=== PATIENT | female | born 1970 | race Caucasian/White ===

== ENCOUNTER → 2023-01-22 16:46 | Outpatient (BNVA) | payer MEDICAID, SELFPAY | PROVIDERS: PCP Nurse Practitioner Family; Visit Provider Nurse Practitioner Family | DX: I10 Essential (primary) hypertension (principal); Z76.89 Persons encountering health services in other specified circumstances; E78.5 Hyperlipidemia, unspecified; E11.9 Type 2 diabetes mellitus without complications; J45.909 Unspecified asthma, uncomplicated; M54.2 Cervicalgia; G89.29 Other chronic pain | CPT/HCPCS: 80053; 80061; 85025 ==

== ENCOUNTER 2023-04-22 10:37 | Outpatient (CLI) | payer OTHER, MEDICAID, SELFPAY ==
--- NOTE | 2023-04-22 11:00 | MM_ITS ---
WS: [id number] Bilateral screening 3D tomosynthesis digital mammogram, 04/22/2023 Clinical Data: Z12.31 - Encounter for screening mammogram for malignant ... Comparison: 09/12/2020, 08/19/2019, 07/27/2019, 11/02/2015. Findings: The breast parenchymal pattern shows fibroglandular tissue. No spiculated masses or clustered calcifi cations are seen. There are no secondary signs of carcinoma. Impression: 1. Negative bilateral mammogram unchanged. 2. Recommend annual screening mammograms. MM/[place] [id number] BIRADS: 1-Negative FOLLOW UP: 1 Year Follow-up The CAD cashier or checker stock clerk was used.
== END 2023-04-22 10:38 | disposition home or self-care (01) ==
LOC: MOBLMAM 10:58
PROVIDERS: PCP Nurse Practitioner Family; Visit Provider Nurse Practitioner Family
DX: Z12.31 Encounter for screening mammogram for malignant neoplasm of breast (principal)
CPT/HCPCS: 77063; 77067

== ENCOUNTER → 2023-07-07 15:30 | Outpatient (BNVA) | payer OTHER, MEDICAID, SELFPAY | PROVIDERS: PCP Nurse Practitioner Family; Visit Provider Orthopaedic Surgery | DX: G89.29 Other chronic pain; M47.22 Other spondylosis with radiculopathy, cervical region; Z98.1 Arthrodesis status | CPT/HCPCS: 72050 ==

== ENCOUNTER → 2023-11-04 11:04 | Outpatient (BNVA) | payer OTHER, MEDICAID, SELFPAY | PROVIDERS: PCP Nurse Practitioner Family; Visit Provider Internal Medicine | DX: E11.9 Type 2 diabetes mellitus without complications (principal); E78.5 Hyperlipidemia, unspecified | CPT/HCPCS: 36415; 80053; 80061; 82044; 83036 ==

== ENCOUNTER 2023-12-04 06:00 | Outpatient (RCR) | payer OTHER, MEDICAID, SELFPAY | END 2023-12-13 23:59 | disposition home or self-care (01) | LOC: GPT 06:00 | PROVIDERS: Visit Provider Orthopaedic Surgery | DX: M54.2 Cervicalgia (principal); M54.12 Radiculopathy, cervical region | CPT/HCPCS: 97110; 97161 ==

== ENCOUNTER → 2024-02-01 09:45 | Outpatient (BNVA) | payer MEDICAID, SELFPAY | PROVIDERS: PCP Nurse Practitioner Occupational Health; Visit Provider Nurse Practitioner | DX: M25.552 Pain in left hip (principal); M25.551 Pain in right hip | CPT/HCPCS: 73523 ==

== ENCOUNTER → 2024-02-08 09:09 | Outpatient (BNVA) | payer MEDICAID, SELFPAY | PROVIDERS: PCP Nurse Practitioner Occupational Health; Visit Provider Internal Medicine | DX: E11.9 Type 2 diabetes mellitus without complications (principal); E78.5 Hyperlipidemia, unspecified | CPT/HCPCS: 80053; 80061; 82043; 83036 ==

== ENCOUNTER 2025-02-25 20:02 | Emergency (ER) | payer MEDICAID, SELFPAY ==
--- OUTSIDE RECORDS SUMMARY | 2025-02-17 08:15 | XMS_ITS | Encounter Summary ---
Author Organization [facility] Address [address] [place] [address] Care Team Providers Care Roving Hand Name Role Phone Gamaliel Lund DO Primary Care Provider [phone] Reason for Referral * Radiology Services (Routine) - Closed Specialty Diagnoses / Procedures Referred By Fermin kraus Referred To Contact Diagnoses NAFLD (nonalcoholic fatty liver disease) Procedures US ABDOMEN COMPLETE Gamaliel Lund DO [address] [place] [address] Phone: tel: fax: [employer] Pre[employer]Registration [place] CALL TO MAKE APPOINTMENT ONLY [address] [place] [address] Phone: tel: fax: Referral ID Status Reason Start Date Expiration Date Visits Re quested Visits Authorized [id number] Closed 2025 03/03/2026 1 1 Reason for Visit * Radiology Services (Routine) - Closed Specialty Diagnoses / Procedures Referred By Contkody kraus Referred To Contact Diagnoses NAFLD (nonalcoholic fatty liver disease) Procedures US ABDOMEN COMPLETE Gamaliel Lund DO [address] [place] [address] Phone: tel: fax: [employer] Pre[facility]Registration [place] CALL TO MAKE APPOINTMENT ONLY [address] [place] [address] Phone: tel: fax: Referral ID Status Reason Start Date Expiration Date Visits Re quested Visits Authorized [id number] Closed 2025 03/03/2026 1 1 Encounter Details Date Type Department Care Team (Latest Contact Info) Description 02/17/2025 8:15 AM CDT - 02/17/2025 11:59 PM CDT Hospital Encounter [facility] [id number] [place] [phone] Gamaliel Lund DO [address] [place] [phone] Discharge Disposition: Home or Self Care Social History Tobacco Use Types Packs/Day Years Used Date Smoking Tobacco: Never Passive Smoke Exposure: Never Smokeless Tobacco: Never Alcohol Use Standard Drinks/Week Comments No 0 (1 standard drink = 0.6 oz pur e alcohol) Feeling Safe Answer Date Recorded Are you in a relationship wi th someone who hurts you emotionally and/or physically? No 11/25/2024 Comments No Sex and Gender Information Value Date Recorded Sex Assigned at Not on file Legal Sex Female 2:50 AM MEDICAL OFFICE RECEPTIONIST Gender Identity Not on file Sexual Orientation Not on file documented as of this encounter Medications at Time of Discharge HYDROcodone-acetami nophen (NORCO) 10-325 mg TabletIndications:P rimary osteoarthritis of left knee,S/P left knee arthroscopy,Chronic post-operative pain Take 1 Tablet by mouth every 6 hours as needed for Pain, Moderate. Max Daily Amount: 4 Tablets 112 Tablet 5 pregabalin (LYRICA) 75 mg CapsuleIndications: Pain in joint of left shoulder,Right carpal tunnel syndrome,Right median nerve neuropathy TAKE ONE CAPSULE BY MOUTH THREE TIMES A DAY 90 Capsule 3 5 tiZANidine (ZANAFLEX) 4 mg TabletIndications:P ain in joint of left shoulder,Right carpal tunnel syndrome,Right median nerve neuropathy TAKE ONE TABLET BY MOUTH EVERY 8 HOURS NEEDED FOR MUSCLE SPASM 45 Tablet 2 5 buPROPion HCL (WELLBUTRIN XL) 150 mg Extended Release 24 hour tablet TAKE ONE TABLET BY MOUTH DAILY 100 Tablet 5 Arthritis Pain, diclofenac, 1 % gel APPLY 2 GRAMS TOPICALLY FOUR TIMES A DAY TO SINGLE ELBOW, WRIST OR HAND (INCLUDING PALM/FINGERS/BACK OF HAND) 100 Gram 5 5 ondansetron (ZOFRAN ODT) 4 mg Tablet, Rapid DissolveIndications :Nausea DISSOLVE 1 TABLET BY MOUTH AND SWALLOW WITH SALIVA EVERY 8 HOURS NEEDED FOR NAUSEA AND VOMITING 30 Tablet 2 5 fluticasone furoate (Arnuity Ellipta) 100 mcg/actuation inhalerIndications: Mild persistent asthma without complication INHALE 1 PUFFS BY MOUTH EVERY DAY AT THE SAME TIME EACH DAY 30 Each 2 5 OTHERIndications:Pr imary osteoarthritis of left knee Lift chair motor for use with chair to assist with sit to stand motion due to severe knee arthritis. DX M17.12 1 Each 5 lisinopriL (PRINIVIL) 40 mg tablet 5 tirzepatide, weight loss, (Zepbound) 15 mg/0.5 mL Pen InjectorIndications :Morbid obesity with body mass index of 40.0-49.9 ([facility]),Type 2 diabetes mellitus with hyperglycemia, with long-term current use of insulin ([facility]) Inject 0.5 mL (15 mg) by subcutaneous injection every 7 days. 2 mL 11 5 insulin degludec (Tresiba FlexTouch U-200) 200 unit/mL pen syringeIndications: Type 2 diabetes mellitus without complication, with long-term current use of insulin ([facility]) Inject 54 Units by subcutaneous injection daily with breakfast. Max 50 units daily. 21 mL 3 5 insulin lispro (HumaLOG KwikPen Insulin) 100 unit/mL pen syringeIndications: Type 2 diabetes mellitus without complication, with long-term current use of insulin ([facility]) Inject 8 Units by subcutaneous injection 3 times daily with meals. Max 50 units daily. 15 mL 3 5 Insulin Gum Spring, Disposable, (Pentips Pen Needle) 32 gauge x 5/32 NeedleIndications:T ype 2 diabetes mellitus with hyperglycemia, with long-term current use of insulin ([facility]) USE FOUR TIMES A DAY TO INJECT INSULIN 400 Each 12 5 atorvastatin (LIPITOR) 40 mg tabletIndications:T ype 2 diabetes mellitus without complication, with long-term current use of insulin ([facility]),Mixed hyperlipidemia Take 1 Tablet (40 mg) by mouth daily. 100 Tablet 3 5 metFORMIN (GLUCOPHAGE XR) 500 mg Extended Release 24 hour tabletIndications:T ype 2 diabetes mellitus with hyperglycemia, without long-term current use of insulin ([facility]) TAKE TWO TABLETS BY MOUTH TWO TIMES A DAY 360 Tablet 3 4 Dexcom G7 Band Cutting Machine Operator 4 FLUoxetine (PROzac) 10 mg capsule 4 shower chair DME EQUIPMENTIndication s:Morbid obesity with body mass index of 40.0-49.9 ([facility]),Primary osteoarthritis of left knee,Complication of internal left knee prosthesis, unspecified complication, sequela For use with showering. 1 Each 4 risperiDONE (RisperDAL) 1 mg tablet take one tablet by mouth two times a day 60 Tablet 1 4 Blood-Glucose Sensor (Dexcom G7 Sensor) DeviceIndications:T ype 2 diabetes mellitus without complication, with long-term current use of insulin ([facility]) Use to monitor glucose continuously. Apply new sensor every 10 days. 3 Each 11 4 albuterol sulfate 90 mcg/Actuation inhaler Inhale two (2) puffs every four (4) hours as needed for wheezing. 8.5 Gram 5 1 documented as of this encounter Plan of Treatment Upcoming Encounters Date Type Department Care Team (Late st Contact Info) Description 03/29/2025 2:00 PM CDT Office Visit [facility] Pain Management [address] [place] [address] Dorie Kat PA [address] [place] [phone] 04/20/2025 8:45 AM MEDICAL OFFICE RECEPTIONIST Office Visit [facility] Orthopedics - Orthopedic [facility] [address] [place] [phone] Aaliyah Ordonez MD [address] [place] [phone] 05/30/2025 1:00 PM MEDICAL OFFICE RECEPTIONIST Appointment [facility] [address] [facility] [address] [place] [phone] Gamaliel Lund, DO [address] [place] [phone] 06/19/2025 9:00 AM MEDICAL OFFICE RECEPTIONIST Office Visit [facility] Barber Opt[facility] [address] [place] [address] Nicolas Mejia, OD [address] [place] [address] 08/30/2025 3:20 PM CDT Office Visit [facility] [address] [phone] Gamaliel Lund, DO [address] [place] [phone] documented as of this encounter Procedures Procedure Name Priority Date/Time Associated Diagnosis Comments US ABDOMEN COMPLETE Routine 02/17/2025 9 :36 AM CDT NAFLD (nonalcoholic fatty liver disease) documented in this encounter Results * US ABDOMEN COMPLETE (02/17/2025 9:36 AM CDT) Anatomical Region Laterality Modality Abdomen Ultrasound 02/17/2025 9:36 AM CDT Impressions 02/19/2025 5:51 PM CDT IMPRESSION: Please see below. US ABDOMEN COMPLETE, 02/17/2025 9:36 AM. REASON FOR EXAM: See Diagnosis. DIAGNOSIS: NAFLD (nonalcoholic fatty liver disease). COMPARISON: None. TECHNIQUE: Multiplanar real-time ultrasonography of the abdomen using reed-scale imaging, supplemented by color and spectral Doppler as needed. FINDINGS: * Liver: Hepatic parenchymal echogenicity is diffusely increased or decreased through transmission and echotexture is somewhat coarsened. There is mild nodular contour liver. No discrete hepatic lesion is identified. The portal vein is patent with antegrade flow. * Gallbladder: Surgically absent. * Biliary: No intra- or extra-hepatic ductal dilatation. Common bile duct measures 6.2 mm. * Spleen: Normal size, contour, and echo texture without focal lesions. Maximal dimension = 10.0 cm. * Pancreas: Obscured by bowel gas. * Kidneys: No perinephric fluid, or hydronephrosis. No focal masses are identified. Right kidney measures 9.9 cm. Left kidney measures 11.1 cm. * Peritoneum: No ascites. * Imaged Aorta/IVC: The visualized aorta and IVC are within normal limits. ++++++++++++++++++++ IMPRESSION: Findings suggestive of underlying hepatic steatosis with possible chronic liver disease such as Miller cirrhosis.. Narrative Procedure Note Nicolas Wu MD - 02/19/2025 IMPRESSION: Please see below. US ABDOMEN COMPLETE, 02/17/2025 9:36 AM. REASON FOR EXAM: See Diagnosis. DIAGNOSIS: NAFLD (nonalcoholic fatty liver disease). COMPARISON: None. TECHNIQUE: Multiplanar real-time ultrasonography of the abdomen using reed-scale imaging, supplemented by color and spectral Doppler as needed. FINDINGS: * Liver: Hepatic parenchymal echogenicity is diffusely increased or decreased through transmission and echotexture is somewhat coarsened. There is mild nodular contour liver. No discrete hepatic lesion is identified. The portal vein is patent with antegrade flow. * Gallbladder: Surgically absent. * Biliary: No intra- or extra-hepatic ductal dilatation. Common bile duct measures 6.2 mm. * Spleen: Normal size, contour, and echo texture without focal lesions. Maximal dimension = 10.0 cm. * Pancreas: Obscured by bowel gas. * Kidneys: No perinephric fluid, or hydronephrosis. No focal masses are identified. Right kidney measures 9.9 cm. Left kidney measures 11.1 cm. * Peritoneum: No ascites. * Imaged Aorta/IVC: The visualized aorta and IVC are within normal limits. ++++++++++++++++++++ IMPRESSION: Findings suggestive of underlying hepatic steatosis with possible chronic liver disease such as Miller cirrhosis.. Gamaliel Lund DO ORDERABLES Final Result documented in this encounter Visit Diagnoses Diagnosis NAFLD (nonalcoholic fatty liver disease) Other chronic nonalcoholic liver disease documented in this encounter Additional Health Concerns Assessment Noted Time PHQ-9 Depression Total Score: 2 11/11/19 25 11:00 AM CDT documented as of this encounter Care Teams Roving Hand Relationship Specialty Start Date End Date Gamaliel Lund DO [facility] [address] [address] PCP - General Family Practice 01/04/24 documented as of this encounter
--- OUTSIDE RECORDS SUMMARY | 2025-02-20 11:26 | XMS_ITS | Encounter Summary ---
Author Organization [facility] Address [address] [place] [address] Care Team Providers Care Jailor Name Role Phone Gamaliel Lund DO Primary Care Provider [phone] Reason for Referral * MRI (Routine) - Closed Specialty Diagnoses / Procedures Referred By Contac t Referred To Contact Diagnoses Lumbar radiculopathy Procedures MRI LUMBAR WO CONTRAST Ernie Goode PA [address] [place] [address] [place] [address] Phone: tel: fax: [employer] Pre-Registration [place] CALL TO MAKE APPOINTMENT ONLY [address] [place] [address] Phone: tel: fax: Referral ID Status Reason Start Date Expiration Date Visits Re quested Visits Authorized [id number] Closed 02/14/2025 06/14/2025 1 1 Reason for Visit * MRI (Routine) - Closed Specialty Diagnoses / Procedures Referred By Contac t Referred To Contact Diagnoses Lumbar radiculopathy Procedures MRI LUMBAR WO CONTRAST Ernie Goode PA [address] [place] [address] [place] [address] Phone: tel: fax: [employer] Pre-Registration [place] CALL TO MAKE APPOINTMENT ONLY [address] [place] [address] Phone: tel: fax: Referral ID Status Reason Start Date Expiration Date Visits Re quested Visits Authorized [id number] Closed 02/14/2025 06/14/2025 1 1 Encounter Details Date Type Department Care Team (Latest Contact Info) Description 02/20/2025 11:26 AM CDT - 02/20/2025 11:59 PM CDT Hospital Encounter [facility] [place] [facility] [address] [place] [address] [address] [phone] Ernie Goode PA [address] [place] [address] J[place]on [id number] Discharge Disposition: Home or Self Care Social [...] on file Legal Sex Female 2:50 AM DIAGNOSTICS SALES DEVELOPER Gender Identity Not on file Sexual Orientation [...] obesity with body mass index of 40.0-49.9 ([facility]),Type 2 diabetes mellitus with hyperglycemia, with long-term current use of insulin ([facility]) Inject 0.5 mL (15 mg) by subcutaneous injection every 7 days. 2 mL 11 5 insulin degludec (Tresiba FlexTouch U-200) 200 unit/mL pen syringeIndications: Type 2 diabetes mellitus without complication, with long-term current use of insulin ([facility]) Inject 54 Units by subcutaneous injection daily with breakfast. Max 50 units daily. 21 mL 3 5 insulin lispro (HumaLOG KwikPen Insulin) 100 unit/mL pen syringeIndications: Type 2 diabetes mellitus without complication, with long-term current use of insulin ([facility]) Inject 8 Units by subcutaneous injection 3 times daily with meals. Max 50 units daily. 15 mL 3 5 Insulin Leckrone, Disposable, (Pentips Pen Needle) 32 gauge x 5/32 NeedleIndications:T ype 2 diabetes mellitus with hyperglycemia, with long-term current use of insulin ([facility]) USE FOUR TIMES A DAY TO INJECT INSULIN 400 Each 12 5 atorvastatin (LIPITOR) 40 mg tabletIndications:T ype 2 diabetes mellitus without complication, with long-term current use of insulin ([facility]),Mixed hyperlipidemia Take 1 Tablet (40 mg) by mouth daily. 100 Tablet 3 5 metFORMIN (GLUCOPHAGE XR) 500 mg Extended Release 24 hour tabletIndications:T ype 2 diabetes mellitus with hyperglycemia, without long-term current use of insulin ([facility]) TAKE TWO TABLETS BY MOUTH TWO TIMES A DAY 360 Tablet 3 4 Dexcom G7 Sap Bw Consultant 4 FLUoxetine (PROzac) 10 mg capsule 4 shower chair DME EQUIPMENTIndication s:Morbid obesity with body mass index of 40.0-49.9 ([facility]),Primary osteoarthritis of left knee,Complication of internal left knee prosthesis, unspecified complication, sequela For use with showering. 1 Each 4 risperiDONE (RisperDAL) 1 mg tablet take one tablet by mouth two times a day 60 Tablet 1 4 Blood-Glucose Sensor (Dexcom G7 Sensor) DeviceIndications:T ype 2 diabetes mellitus without complication, with long-term current use of insulin ([facility]) Use to monitor glucose continuously. Apply new sensor every 10 days. 3 Each 11 4 albuterol sulfate 90 mcg/Actuation inhaler Inhale two (2) puffs every four (4) hours as needed for wheezing. 8.5 Gram 5 1 documented as of this encounter Plan of Treatment Upcoming Encounters Date Type Department Care Team (Late st Contact Info) Description 03/29/2025 2:00 PM CDT Office Visit [facility] Pain Management [address] [place] [address] Dorie Kat PA [address] [place] [address] 04/20/2025 8:45 AM DIAGNOSTICS SALES DEVELOPER Office Visit [facility] [address] [place] [address] Aaliyah Ordonez MD [address] [place] [phone] 05/30/2025 1:00 PM DIAGNOSTICS SALES DEVELOPER Appointment [facility] [address] [place] [phone] Gamaliel Lund, DO [address] [place] [phone] 06/19/2025 9:00 AM DIAGNOSTICS SALES DEVELOPER Office Visit [facility] Faceter Optometry [facility] [address] [place] [address] Nicolas Mejia, OD [address] [place] [address] 08/30/2025 3:20 PM CDT Office Visit [facility] [place] [address] [address] Gamaliel Lund, DO [address] [place] [phone] documented as of this encounter Procedures Procedure Name Priority Date/Time Associated Diagnosis Comments MRI LUMBAR WO CONTRAST Routine 02/20/2025 12:00 PM CDT Lumbar radiculopathy documented in this encounter Results * MRI LUMBAR WO CONTRAST (02/20/2025 12:00 PM CDT) Anatomical Region Laterality Modality Spine Magnetic Resonan ce 02/20/2025 12:0 0 PM CDT Impressions 02/20/2025 1:24 PM CDT IMPRESSION: Lower lumbar degenerative change with severe bilateral L5-S1 neural foraminal narrowing. Narrative 02/20/2025 1:24 PM CDT Exam: MRI LUMBAR WO CONTRAST Date/Time of Exam: 02/20/2025 12:00 PM Reason For Exam: Lumbar radiculopathy, symptoms persist with > 6 wks treatment. Diagnosis: Lumbar radiculopathy. Technique: MRI of the lumbar spine was performed without the administration of intravenous contrast. Findings: Mild retrolisthesis of L5 on S1. No acute fracture or aggressive osseous lesion. Conus medullaris terminates at L1.. The paraspinal musculature demonstrates mild atrophy. The retroperitoneal structures demonstrate no acute abnormality. L1-2: Symmetric disc bulge and facet arthropathy. Mild left neural foraminal narrowing. L2-3: Patent spinal canal and neural foramen. L3-4: Bilateral facet arthropathy with facet arthropathy. Mild right neural foraminal narrowing. L4-5: Bilateral facet arthropathy with mild left neural foraminal narrowing. L5-S1: Symmetric disc bulge and facet arthropathy. Severe bilateral neural foraminal narrowing. Procedure Note Elliot Crook, DO - 02/20/2025 Exam: MRI LUMBAR WO CONTRAST Date/Time of Exam: 02/20/2025 12:00 PM Reason For Exam: Lumbar radiculopathy, symptoms persist with > 6 wks treatment. Diagnosis: Lumbar radiculopathy. Technique: MRI of the lumbar spine was performed without the administration of intravenous contrast. Findings: Mild retrolisthesis of L5 on S1. No acute fracture or aggressive osseous lesion. Conus medullaris terminates at L1.. The paraspinal musculature demonstrates mild atrophy. The retroperitoneal structures demonstrate no acute abnormality. L1-2: Symmetric disc bulge and facet arthropathy. Mild left neural foraminal narrowing. L2-3: Patent spinal canal and neural foramen. L3-4: Bilateral facet arthropathy with facet arthropathy. Mild right neural foraminal narrowing. L4-5: Bilateral facet arthropathy with mild left neural foraminal narrowing. L5-S1: Symmetric disc bulge and facet arthropathy. Severe bilateral neural foraminal narrowing. IMPRESSION: Lower lumbar degenerative change with severe bilateral L5-S1 neural foraminal narrowing. Ernie SANTOS MR ORDERABLES Final Result documented in this encounter Visit Diagnoses Diagnosis Lumbar radiculopathy Thoracic or lumbosacral neuritis or radiculitis, unspecified documented in this encounter Additional Health Concerns Assessment Noted Time PHQ-9 Depression Total Score: 2 05/29/20 25 11:00 AM CDT documented as of this encounter Care Teams Jailor Relationship Specialty Start Date End Date Gamaliel Lund DO [address] [facility] [address] [place] [address] PCP - General Family Practice 01/04/24 documented as of this encounter
--- OUTSIDE RECORDS SUMMARY | 2025-02-23 15:20 | XMS_ITS | Encounter Summary ---
Author Organization [facility] Address [address] [place] [address] Care Team Providers Care Hull Molder Name Role Phone Gamaliel Lund DO Primary Care Provider [phone] Reason for Referral * Radiology Services (Routine) - Authorized Specialty Diagnoses / Procedures Referred By Contac t Referred To Contact Diagnoses Screening mammogram, encounter for Procedures MAMMO 3D PAVAN SCREEN BILAT W OR WO CAD CHG SCREENING MAMMOGRAPHY BI 2-VIEW BREAST INC CAD CHG SCREENING DIGITAL BREAST TOMOSYNTHESIS BI Gamaliel Lund DO [address] [place] [phone] Phone: tel: fax: [facility] Pre-Registration [place] CALL TO MAKE APPOINTMENT ONLY [address] [place] [address] Phone: tel: fax: Referral ID Status Reason Start Date Expiration Date V isits Requested Visits Authorized [id number] Authorized 02/23/2025 03/26/2026 1 1 Reason for Visit * Reason Comments Diabetes Encounter Details Date Type Department Care Team (Latest Contact Info) Description 02/23/2025 3:20 PM CDT Office Visit [facility] [address] [place] [phone] Gamaliel Lund DO [address] [place] [phone] Diabetic polyneuropathy associated with type 2 diabetes mellitus (CMS/HCC) (Primary Dx); Encounter for long-term (current) use of medications; Morbid obesity with body mass index of 40.0-49.9 (CMS/HCC); Type 2 diabetes mellitus with hyperglycemia, with long-term current use of insulin ([facility]); Essential hypertension; Hyperlipemia, mixed; Mild persistent asthma without complication; Primary osteoarthritis of left knee; Complication of internal left knee prosthesis, unspecified complication, sequela; Patellar tracking disorder of left knee; Hx of fusion of cervical spine, s/p C6-C7 ACDF SX 08/10/14; Screening mammogram, encounter for Social History Tobacco Use Types Packs/Day Years [...] on file Legal Sex Female 2:50 AM APPLICATIONS PROCESSOR Gender Identity Not on file Sexual Orientation Not on file documented as of this encounter Last Filed Vital Signs Vital Sign Reading Time Taken Comments Blood Pressure 114/78 02/23/2025 2:56 PM CDT Pulse 86 02/23/2025 2:56 PM CDT Temperature 36.5 C (97.7 F) 02/23/2025 2:56 PM CDT Respiratory Rate 18 02/23/2025 2:56 PM CDT Oxygen Saturation 98% 02/23/2025 2:56 PM CDT Inhaled Oxygen Concentration - - Weight 105.1 kg (231 lb 12.8 oz) 02/23/2025 2:56 PM CDT Height 160 cm (5' 3 ) 02/23/2025 2:56 PM CDT Body Mass Index 41.06 02/23/2025 2:56 PM CDT documented in this encounter Patient Instructions * Attachments The following attachments cannot be sent through Care Everywhere. * Recombinant Zoster Vaccine: VIS (Latvian) documented in this encounter Progress Notes * Gamaliel Lund DO - 02/23/2025 2:58 PM CDT Chief Complaint Patient presents with Diabetes SUBJECTIVE: Answers submitted by the patient for this visit: Diabetes Questionnaire (Submitted on 02/16/2025) Chief Complaint: Diabetes problem anxiety: Yes blurred vision: Yes chest pain: Yes fatigue: Yes foot paresthesias: Yes foot ulcerations: No polydipsia: Yes polyphagia: No polyuria: Yes neck pain: Yes orthopnea: No palpitations: No peripheral edema: Yes PND: No visual change: Yes weakness: Yes weight loss: No shortness of breath: No confusion: No speech difficulty: No dizziness: Yes nervous/anxious: Yes headaches: No hunger: No mood changes: No pallor: No seizures: No tremors: Yes sleepiness: No sweats: No Home blood tests: 3-4 x per day breakfast glucose levels: 180-200 lunch glucose levels: 180-200 dinner glucose level: >200 Bedtime range: >200 Eye exam current: Yes History of Present Illness The patient is a 55-year-old female with diabetes, knee osteoarthritis, status post knee replacement, and patellar tendon tracking disorder, presenting for follow-up. Knee Pain and Mobility Issues - Pain medication is effective, but she has difficulty walking after standing. - She recalls an incident 3-4 days ago when she woke up in pain and couldn't walk for the day. - During such episodes, she remains seated and requires assistance to stand initially but can move independently thereafter. Diabetes Management - Blood sugar levels are well-controlled, not exceeding 200 until late in the day. - She is on Tresiba, Humalog, metformin, and Zepbound, resulting in a 20-pound weight loss. - Previously tried Invokana and glimepiride. Nonalcoholic Fatty Liver Disease - Ultrasound revealed nonalcoholic fatty liver disease with cirrhosis. Other Health Maintenance - Mammogram in 05/2024. - Last colonoscopy in 2021. - Tetanus booster in 2019. - Chickenpox at 9 months. MRI Results - MRI of her back; seeking explanation of results. - Follow-up with Dr. Hagan in 04/2025. Diet - Diabetic diet, reducing carbohydrates, avoiding processed sugars. PAST SURGICAL HISTORY - Knee replacement - Surgery related to colonoscopy in 2021 Wt Readings from Last 5 Encounters: 02/23/25 105.1 kg (231 lb 12.8 oz) 12/08/24 112.5 kg (248 lb) 11/25/24 112.9 kg (249 lb) 11/10/24 113 kg (249 lb 3.2 oz) 11/08/24 112.5 kg (248 lb 1.6 oz) Ht Readings from Last 1 Encounters: 02/23/25 5' 3 (1.6 m) BMI Readings from Last 5 Encounters: 02/23/25 41.06 kg/m?? 01/18/25 43.93 kg/m?? 12/08/24 43.93 kg/m?? 11/25/24 44.11 kg/m?? 11/10/24 44.14 kg/m?? Current Outpatient Medications on File Prior to Visit Medication Sig Dispense Refill HYDROcodone-acetaminophen (NORCO) 10-325 mg Tablet Take 1 Tablet by mouth every 6 hours as needed for Pain, Moderate. Max Daily Amount: 4 Tablets 112 Tablet 0 pregabalin (LYRICA) 75 mg Capsule TAKE ONE CAPSULE BY MOUTH THREE TIMES A DAY 90 Capsule 3 tiZANidine (ZANAFLEX) 4 mg Tablet TAKE ONE TABLET BY MOUTH EVERY 8 HOURS NEEDED FOR MUSCLE SPASM45 Tablet 2 buPROPion HCL (WELLBUTRIN XL) 150 mg Extended Release 24 hour tablet TAKE ONE TABLET BY MOUTH [id number] Tablet 0 Arthritis Pain, diclofenac, 1 % gel APPLY 2 GRAMS TOPICALLY FOUR TIMES A DAY TO SINGLE ELBOW, WRISTOR HAND (INCLUDING PALM/FINGERS/BACK OF HAND) 100 Gram 5 ondansetron (ZOFRAN ODT) 4 mg Tablet, Rapid Dissolve DISSOLVE 1 TABLET BY MOUTH AND SWALLOW WITH SALIVA EVERY 8 HOURS NEEDED FOR NAUSEA AND VOMITING 30 Tablet 2 fluticasone furoate (Arnuity Ellipta) 100 mcg/actuation inhaler INHALE 1 PUFFS BY MOUTH EVERY DAY AT THE SAME TIME EACH DAY 30 Each 2 OTHER Lift chair motor for use with chair to assist with sit to stand motion due to severe knee arthritis. DX M17.12 1 Each 0 lisinopriL (PRINIVIL) 40 mg tablet tirzepatide, weight loss, (Zepbound) 15 mg/0.5 mL Pen Injector Inject 0.5 mL (15 mg) by subcutaneous injection every 7 days. 2 mL 11 insulin degludec (Tresiba FlexTouch U-200) 200 unit/mL pen syringe Inject 54 Units by subcutaneous injection daily with breakfast. Max 50 units daily. 21 mL 3 insulin lispro (HumaLOG KwikPen Insulin) 100 unit/mL pen syringe Inject 8 Units by subcutaneous injection 3 times daily with meals. Max 50 units daily. 15 mL 3 Insulin Guffey, Disposable, (Pentips Pen Needle) 32 gauge x 5/32 Needle USE FOUR TIMES A DAY TO INJECT INSULIN 400 Each 12 atorvastatin (LIPITOR) 40 mg tablet Take 1 Tablet (40 mg) by mouth daily. 100 Tablet 3 metFORMIN (GLUCOPHAGE XR) 500 mg Extended Release 24 hour tablet TAKE TWO TABLETS BY MOUTH TWO TIMES A DAY 360 Tablet 3 FLUoxetine (PROzac) 10 mg capsule shower chair DME EQUIPMENT For use with showering. 1 Each 0 risperiDONE (RisperDAL) 1 mg tablet take one tablet by mouth two times a day 60 Tablet 1 albuterol sulfate 90 mcg/Actuation inhaler Inhale two (2) puffs every four (4) hours as needed for wheezing. 8.5 Gram 5 Dexcom G7 Academic Advisement Director (Patient not taking: Reported on 02/23/2025) Blood-Glucose Sensor (Dexcom G7 Sensor) Device Use to monitor glucose continuously. Apply new sensor every 10 days. (Patient not taking: Reported on 02/23/2025) 3 Each 11 No current facility-administered medications on file prior to visit. PAST MEDICAL/SURGICAL HISTORY: Past Medical History: Diagnosis Date Asthma Depression Gall stones History of abnormal cervical Pap smear 1997 tric HTN (hypertension) Hyperlipidemia Hypertension 2010 Infertility, female [id number] Inflammatory arthritis Injury of face and neck C6 - bone spur Joint pain Osteoporosis 2019 Patient denies medical problems Patient denies relevant medical history Type 2 diabetes mellitus with hyperglycemia, without long-term current use of insulin ([facility]) 05/31/2021 Past Surgical History: Procedure Laterality Date HX CERVICAL FUSION 08/10/2014 CERVICAL ARTHRODESIS performed by Austyn Banerjee MD at [facility] MAIN OR HX CHOLECYSTECTOMY HX DILATION AND CURETTAGE [id number] HX HAND SURGERY 2014 HX HEMORRHOIDECTOMY N/A 06/03/2021 HEMORRHOIDECTOMY performed by Ilan Guan MD at [facility] MAIN OR HX OVARIAN CYST REMOVAL bilateral HX SHOULDER ARTHROSCOPY W/ SUBACROMIAL DECOMPRESSION AND DISTAL CLAVICLE EXCISION 08/08/2013 [place] ARTHRD ANT INTERBODY MIN DSC CRV BELOW C2 Left 08/10/2014 CERVICAL DISCECTOMY FUSION ANTERIOR APPROACH performed by Austyn Banerjee MD at [facility] OR [place] ARTHRODESIS INTERPHALANGEAL JT W/WO INT FIXJ Right 11/25/2024 FINGER INTERPHALANGEAL JOINT FUSION DISTAL performed by Aaliyah Ordonez MD at [facility] OR [place] ARTHRS KNE SURG W/MENISCECTOMY MED/LAT W/SHVG Left 09/12/2015 KNEE MENISCECTOMY ARTHROSCOPIC performed by Aubrey Cali MD at [facility] OR [place] ARTHRS KNEE ABRASION ARTHRP/[address] VENDOR DRLG/MICROFX Left 09/12/2015 KNEE CHONDROPLASTY ARTHROSCOPIC performed by Aubrey Cali MD at [facility] OR [place] MURGUIA W/O FACETEC FORAMOT/DSC 1/2 VRT SGM CRV 08/10/2014 CERVICAL DECOMPRESSION performed by Austyn Banerjee MD at [facility] OR [place] NEUROPLASTY &/TRANSPOS MEDIAN NRV CARPAL TUNNE Right 03/27/2015 CARPAL TUNNEL RELEASE performed by Doron Lundy MD at [facility] OR PT DENIES RELEVANT SURGICAL HISTORY Social History Socioeconomic History Marital status: Tobacco Use Smoking status: Never Passive exposure: Never Smokeless tobacco: Never Vaping Use Vaping status: Never Used Substance and Sexual Activity Alcohol use: No Alcohol/week: 0.0 standard drinks of alcohol Drug use: Never Sexual activity: Yes Partners: Male control/protection: None Social Drivers of Health Food Insecurity: Not on File (06/09/2024) Received from [facility] Food Insecurity Food: 0 Transportation Needs: Not on File (06/09/2024) Received from [facility] Transportation Needs Transportation: 0 Feeling Safe: Not At Risk (11/25/2024) Feeling Safe Patient has indicated abuse: : No Housing Stability: Not on File (06/09/2024) Received from [facility] Housing Stability [place]in OBJECTIVE: PHYSICAL EXAM: BP 114/78 Pulse 86 Temp 97.7 ??F (36.5 ??C) (Temporal) Resp 18 Ht 5' 3 (1.6 m) Wt 105.1 kg (231 lb 12.8 oz) LMP 08/15/2024 (Approximate) SpO2 98% BMI 41.06 kg/m?? Physical Exam Procedures RESULTS: Results - Labs: - A1c: 7.8 (down from 9.6) - Liver enzymes: Slightly elevated - Imaging: - Ultrasound: Nonalcoholic fatty liver disease with cirrhosis - MRI lumbar: Degenerative change with severe bilateral L5-S1 neuroforaminal narrowing, disk bulge,facet arthropathy, and retrolisthesis ASSESSMENT/PLAN: ICD-10-CM ICD-9-CM 1. Diabetic polyneuropathy associated with type 2 diabetes mellitus ([facility]) E11.42 250.60 357.2 2. Encounter for long-term (current) use of medications Z79.899 V58.69 MEDICATION COMPLIANCE DRUG SCREEN 3. Morbid obesity with body mass index of 40.0-49.9 ([facility]) E66.01 278.01 4. Type 2 diabetes mellitus with hyperglycemia, with long-term current use of insulin [place] E11.65 250.00 Z79.4 790.29 V58.67 5. Essential hypertension I10 401.9 6. Hyperlipemia, mixed E78.2 272.2 7. Mild persistent asthma without complication J45.30 493.90 8. Primary osteoarthritis of left knee M17.12 715.16 9. Complication of internal left knee prosthesis, unspecified complication, sequela T84.9XXS 909.3 Z96.652 10. Patellar tracking disorder of left knee M22.8X2 719.46 11. Hx of fusion of cervical spine, s/p C6-C7 ACDF SX 08/10/14 Z98.1 V45.4 Assessment & Plan 1. Knee osteoarthritis: Chronic. - Significant difficulty in standing and walking due to knee pain, sometimes preventing walking fora day. - Considering a lift chair; insurance approval requires walking after standing. - Continue current pain medication, avoid overuse. 2. Diabetes mellitus: Stable. - Blood sugar levels well-controlled, no readings exceeding 200 until late in the day. A1c decreased from 9.6 to 7.8. - On Tresiba, Humalog, metformin, and Zepbound. If A1c remains above 7, consider reintroducing Invokana and glimepiride. - Continue diabetic diet, reduce carbohydrates, avoid processed sugars. Possible insulin dosage reduction with weight loss. 3. Nonalcoholic fatty liver disease with cirrhosis: Chronic. - Ultrasound revealed nonalcoholic fatty liver disease with cirrhosis. - Weight loss is primary treatment goal. Schedule follow-up ultrasound next year. - Continue current regimen, including Zepbound. Report any abdominal pain or persistent nausea. 4. Lower lumbar degenerative change: Severe. - MRI revealed lower lumbar degenerative changes with severe bilateral L5-S1 neuroforaminal narrowing, facet arthropathy, and retrolisthesis. - Recommend physical therapy if covered by insurance; otherwise, continue home exercises. Consider injections for pain management if necessary. - Take arthritis medications like ibuprofen or Aleve if kidneys are functioning appropriately. Use Lyrica for nerve-related pain, hydrocodone for residual pain. 5. Health maintenance. - Last mammogram in 05/2024, last colonoscopy in 2021, tetanus booster in 2019. - Ordered mammogram for 05/2025. Advise shingles vaccine at pharmacy. Administer tetanus booster ifanother cut or poke. Follow-up: Scheduled for 6 months. Lift chair assessment: Patient is able to ambulate once standing and does not use a wheelchair or power operated vehicle (POV). She has severe arthritis of her knee with history of complication of internal knee prosthesis and patellar tracking disorder of left knee (ICD 10: M17.12, T84.9XXS, Z96.652, M22.8X2). This is a part of her course of treatment and prescribed to affect improvement in her condition. Currently sheis incapable of standing up from any chair in her home. No chairs in her home have arms which wouldotherwise assist her to a standing position. Preventive Care Recommendations for AVERAGE Risk Adult Females 40 - 65 years old Measure USPSTF Recommendation Plan Breast cancer screening (mammogram) Every 1 to 2 years for women >40 ordered/scheduled Cervical cancer screening (pap test) Every 3-5 years for women 30-65 (depending on the exact test used.) already done/up to date Colon Cancer Screening Colonoscopy every 10 yrs or FIT yearly; ages 45-75 already done/up to date Lung Cancer Screening Annual low-dose CT, adults 50 - 80* w/ >20 pack-year smoking hx who currently smoke or have quit w/in 15 yrs (*Some insurances may not cover <55 yo, >77 yo or <30 pk yrs) N/A - does not meet screening criteria reports that she has never smoked. She has never been exposed to tobacco smoke. She has never used smokeless tobacco. Lipid Screening Identification of dyslipidemia and calculation of 10-year CVD event risk requires universal lipid screening in adults ages 40 - 75 already done/up to date Diabetic screening Adults 40-70 who are overweight or obese N/A - condition already diagnosed. HIV testing Adolescents and adults 15 - 65 patient declined Hepatitis C Screening Adults 18-79 patient declined Immunizations COVID-19 Influenza Pneumococcal (if >50 yo) Tdap/Td Zoster (Shingles) (if >50 yo) Due for Zoster referred to pharmacy TOBACCO/NICOTINE COUNSELING She is not a tobacco/nicotine user. Depression Screen Positive: PHQ-2 score >= 3 or PHQ-9 score >= 9 PHQ-2 Total: 1 (02/23/2025 2:00 PM) PHQ-9 Total: 6 (02/23/2025 2:00 PM) DEPRESSION PLAN OF CARE Her depression screen was positive. Her antidepressant medication was reviewed The author of this note, patient (or authorized leather goods sales representative), and all other persons present consent to the audio recording of this visit for charting documentation purposes. This note was automatically generated by a [email or web address] technology ([employer]), reviewed, edited, and finalized by Gamaliel Lund DO. Gamaliel Lund DO Portions of this note were created using [employer] Dictation software. Attempts were made to correct any mistakes prior to signing this note. There is always a possibility that words were not transcribed correctly. This note is made as a medical record and medical terms have been used where appropriate. If you do not recognize a term or feel it is inaccurate please call the office to discuss or schedule a follow-up appointment. documented in this encounter Miscellaneous Notes * Patient Instructions - Gamaliel Lund DO - 02/23/2025 3:32 PM CDT Adults over 50 should receive a shingles vaccination. You may get this at the pharmacy. It is a 2 shot series, initial shot by 2 to 3 months from booster shot. documented in this encounter Plan of Treatment Upcoming Encounters Date Type Department Care Team (Late st Contact Info) Description 03/29/2025 2:00 PM CDT Office Visit [facility] Pain Management [address] [place] [address] Dorie Kat PA [address] [place] [address] 04/20/2025 8:45 AM APPLICATIONS PROCESSOR Office Visit [facility] Orthopedics - Orthopedic [facility] [address] [place] [address] Aaliyah Ordonez MD [address] [place] [address] 05/30/2025 1:00 PM APPLICATIONS PROCESSOR Appointment [facility] [address] [place] [address] Gamaliel Lund DO [address] [place] [phone] 06/19/2025 9:00 AM APPLICATIONS PROCESSOR Office Visit [facility] Medical Billing Supervisor Optometry [facility] [address] [place] [address] Nicolas Mejia, OD [address] [place] [address] 08/30/2025 3:20 PM CDT Office Visit [facility] Family Medicine [place] [address] [place] [phone] Gamaliel Lund DO [address] [place] [phone] Pending Results Name Type Priority Associated Diagnoses Date /Time MEDICATION COMPLIANCE DRUG SCREEN Lab Routine Encounter for long-term (current) use of medications 02/23/2025 3:48 PM CDT Scheduled Orders Name Type Priority Associated Diagnoses Orde r Schedule MAMMO 3D PAVAN SCREEN BILAT W OR WO CAD Imaging Routine Screening mammogram, encounter for 1 Occurrences starting 02/23/2025 until 08/23/2026 documented as of this encounter Procedures Procedure Name Priority Date/Time Associated Diagnosis Comments MEDICATION COMPLIANCE DRUG SCREEN Routine 02/23/2025 3:48 PM CDT Encounter for long-term (current) use of medications documented in this encounter Visit Diagnoses Diagnosis Diabetic polyneuropathy associated with type 2 diabetes mellitus ([facility])- Primary Encounter for long-term (current) use of medications Encounter for long-term (current) use of other medications Morbid obesity with body mass index of 40.0-49.9 ([facility]) Type 2 diabetes mellitus with hyperglycemia, with long-term current use of insulin ([facility]) Essential hypertension Unspecified essential hypertension Hyperlipemia, mixed Mixed hyperlipidemia Mild persistent asthma without complication Unspecified asthma Primary osteoarthritis of left knee Primary localized osteoarthrosis, lower leg Complication of internal left knee prosthesis, unspecified complication, sequela Patellar tracking disorder of left knee Hx of fusion of cervical spine, s/p C6-C7 ACDF SX 08/10/14 Arthrodesis status Screening mammogram, encounter for documented in this encounter Additional Health Concerns Assessment Noted Time PHQ-9 Depression Total Score: 1 02/24/20 25 2:00 PM CDT documented as of this encounter Care Teams Hull Molder Relationship Specialty Start Date End Date Gamaliel Lund DO [address] [address] [place] [phone] PCP - General Family Practice 01/04/24 documented as of this encounter
--- OUTSIDE RECORDS SUMMARY | 2025-02-25 20:09 | XMS_ITS | Clinical Summary ---
Author Organization [facility] Address [address] Melendez: [place] [address] Care Team Providers Care Piping Design Specialist Name Role Phone Gamaliel Lund DO Primary Care Provider [phone] Allergies Active Allergy Reactions Criticality Noted Date Comments Orphenadrine Citrate Other (See Comments) 01/25 High blood pressure & heart rate when mixed with norco Oxycodone-Acetaminophen Shortness of Breath/Wheezing,Swel ling High 01/26/2012 Propoxyphene N-Acetaminophen Dizziness Low 01/26/2012 Medications albuterol sulfate 90 mcg/Actuation inhaler Inhale two (2) puffs every four (4) hours as needed for wheezing. 8.5 Gram 5 Active Blood-Glucose Sensor (Dexcom G7 Sensor) DeviceIndications :Type 2 diabetes mellitus without complication, with long-term current use of insulin ([facility]) Use to monitor glucose continuously. Apply new sensor every 10 days. 3 Each Active Additional Information Patient not taking.Reason: Side effect (Comments), Reported on 02/23/2025 risperiDONE (RisperDAL) 1 mg tablet take one tablet by mouth two times a day 60 Tablet 1 Active Dexcom G7 Business Development Specialist Active FLUoxetine (PROzac) 10 mg capsule Active shower chair DME EQUIPMENTIndicati ons:Morbid obesity with body mass index of 40.0-49.9 ([facility]),Primary osteoarthritis of left knee,Complication of internal left knee prosthesis, unspecified complication, sequela For use with showering. 1 Each 024 Active metFORMIN (GLUCOPHAGE XR) 500 mg Extended Release 24 hour tabletIndications :Type 2 diabetes mellitus with hyperglycemia, without long-term current use of insulin ([facility]) TAKE TWO TABLETS BY MOUTH TWO TIMES A DAY 360 Tablet 3 024 Active atorvastatin (LIPITOR) 40 mg tabletIndications :Type 2 diabetes mellitus without complication, with long-term current use of insulin ([facility]),Mixed hyperlipidemia Take 1 Tablet (40 mg) by mouth daily. 100 Tablet 3 025 Active Insulin [place], Disposable, (Pentips Pen Needle) 32 gauge x 5/32 NeedleIndications :Type 2 diabetes mellitus with hyperglycemia, with long-term current use of insulin ([facility]) USE FOUR TIMES A DAY TO INJECT INSULIN 400 Each 12 025 Active lisinopriL (PRINIVIL) 40 mg tablet 025 Active tirzepatide, weight loss, (Zepbound) 15 mg/0.5 mL Pen InjectorIndicatio ns:Morbid obesity with body mass index of 40.0-49.9 ([facility]),Type 2 diabetes mellitus with hyperglycemia, with long-term current use of insulin ([facility]) Inject 0.5 mL (15 mg) by subcutaneous injection every 7 days. 2 mL 11 025 Active insulin degludec (Tresiba FlexTouch U-200) 200 unit/mL pen syringeIndication s:Type 2 diabetes mellitus without complication, with long-term current use of insulin ([facility]) Inject 54 Units by subcutaneous injection daily with breakfast. Max 50 units daily. 21 mL 3 025 Active insulin lispro (HumaLOG KwikPen Insulin) 100 unit/mL pen syringeIndication s:Type 2 diabetes mellitus without complication, with long-term current use of insulin ([facility]) Inject 8 Units by subcutaneous injection 3 times daily with meals. Max 50 units daily. 15 mL 3 025 Active OTHERIndications: Primary osteoarthritis of left knee Lift chair motor for use with chair to assist with sit to stand motion due to severe knee arthritis. DX M17.12 1 Each 025 Active fluticasone furoate (Arnuity Ellipta) 100 mcg/actuation inhalerIndication s:Mild persistent asthma without complication INHALE 1 PUFFS BY MOUTH EVERY DAY AT THE SAME TIME EACH DAY 30 Each 2 Active buPROPion HCL (WELLBUTRIN XL) 150 mg Extended Release 24 hour tablet TAKE ONE TABLET BY MOUTH DAILY 100 Tablet 025 Active Arthritis Pain, diclofenac, 1 % gel APPLY 2 GRAMS TOPICALLY FOUR TIMES A DAY TO SINGLE ELBOW, WRIST OR HAND (INCLUDING PALM/FINGERS/BA CK OF HAND) 100 Gram 5 025 Active ondansetron (ZOFRAN ODT) 4 mg Tablet, Rapid DissolveIndicatio ns:Nausea DISSOLVE 1 TABLET BY MOUTH AND SWALLOW WITH SALIVA EVERY 8 HOURS NEEDED FOR NAUSEA AND VOMITING 30 Tablet 2 025 Active tiZANidine (ZANAFLEX) 4 mg TabletIndications :Pain in joint of left shoulder,Right carpal tunnel syndrome,Right median nerve neuropathy TAKE ONE TABLET BY MOUTH EVERY 8 HOURS NEEDED FOR MUSCLE SPASM 45 Tablet 2 025 Active HYDROcodone-aceta minophen (NORCO) 10-325 mg TabletIndications :Primary osteoarthritis of left knee,S/P left knee arthroscopy,Chron ic post-operative pain Take 1 Tablet by mouth every 6 hours as needed for Pain, Moderate. Max Daily Amount: 4 Tablets 112 Tablet 025 Active pregabalin (LYRICA) 75 mg CapsuleIndication s:Pain in joint of left shoulder,Right carpal tunnel syndrome,Right median nerve neuropathy TAKE ONE CAPSULE BY MOUTH THREE TIMES A DAY 90 Capsule 3 025 Active pregabalin (LYRICA) 75 mg CapsuleIndication s:Pain in joint of left shoulder,Right carpal tunnel syndrome,Right median nerve neuropathy TAKE ONE CAPSULE BY MOUTH THREE TIMES A DAY 90 Capsule 3 025 2024 Discontinued tirzepatide, weight loss, (Zepbound) 12.5 mg/0.5 mL Pen InjectorIndicatio ns:Morbid obesity with body mass index of 40.0-49.9 ([facility]),Type 2 diabetes mellitus with hyperglycemia, with long-term current use of insulin ([facility]) Inject 0.5 mL (12.5 mg) by subcutaneous injection every 7 days for 28 days. 2 mL 025 2024 HYDROcodone-aceta minophen (NORCO) 10-325 mg TabletIndications :Primary osteoarthritis of left knee,S/P left knee arthroscopy,Chron ic post-operative pain Take 1 Tablet by mouth every 6 hours as needed for Pain, Moderate. Max Daily Amount: 4 Tablets 112 Tablet 025 2024 Discontinued(R eorder) doxycycline hyclate (VIBRAMYCIN) 100 mg capsule Take 1 Capsule (100 mg) by mouth 2 times daily for 10 days. 20 Capsule 025 2024 Active Problems Problem Noted Date Diagnosed Date Patellar tracking disorder of left knee 07/17/19 25 Essential hypertension 07/17/2024 Hyperlipemia, mixed 07/17/2024 Diabetic polyneuropathy asso ciated with type 2 diabetes mellitus 07/17/2024 Frequent falls 05/23/2024 Complication of internal left knee prosthesis Mild persistent asthma without complication 10/2023 Type 2 diabetes mellitus wit h hyperglycemia, with long-term current use of insulin 02/04/2022 Primary osteoarthritis of left knee 09/14/2018 Morbid obesity with body mass index of 40.0-49.9 08/07/2015 Hx of fusion of cervical spine, s/p C6-C7 ACDF S X 08/10/14 05/22/2015 S/P carpal tunnel release, right sx 10.13.15 Right carpal tunnel syndrome 03/21/2015 Right median nerve neuropathy 01/01/2015 S/P arthroscopy of shoulder 04/13/2014 Overview (12/20/2020): Left by Dr Mcwilliams in [place] Pain in joint, shoulder region 02/03/2012 Resolved Problems Problem Noted Date Diagnosed Date Resolved Date Type 2 diabetes mellitus wit h hyperglycemia, without long-term current use of insulin 05/31/2021 02/04/2022 Encounters Date Type Department Care Team Description 02/23/2025 3:20 PM CDT Office Visit [address] [phone] Gamaliel Lund DO Diabetic polyneuropathy associated with type 2 diabetes mellitus ([facility]) (Primary Dx); Encounter for long-term (current) use of medications; Morbid obesity with body mass index of 40.0-49.9 ([facility]); Type 2 diabetes mellitus with hyperglycemia, with long-term current use of insulin ([facility]); Essential hypertension; Hyperlipemia, mixed; Mild persistent asthma without complication; Primary osteoarthritis of left knee; Complication of internal left knee prosthesis, unspecified complication, sequela; Patellar tracking disorder of left knee; Hx of fusion of cervical spine, s/p C6-C7 ACDF SX 08/10/14; Screening mammogram, encounter for 02/22/2025 Telephone [facility] [address] [phone] Gamaliel Lund DO Provider Call 02/21/2025 Orders Only [place] [address] [place] [address] Ernie Goode PA Lumbar radiculopathy (Primary Dx) 02/21/2025 Results Follow-Up [place] [address] [place] [phone] Ernie Goode PA MRI LUMBAR WO CONTRAST 02/20/2025 11:26 AM CDT - 02/20/2025 11:59 PM CDT Hospital Encounter [facility] Services [place] [address] [place] [address] Ernie Goode PA Discharge Disposition: Home or Self Care 02/20/2025 Results Follow-Up [facility] [address] [phone] Gamaliel Lund DO US ABDOMEN COMPLETE 02/17/2025 8:15 AM CDT - 02/17/2025 11:59 PM CDT Hospital Encounter [place] [address] [place] [address] Gamaliel Lund DO Discharge Disposition: Home or Self Care 02/17/2025 Results Follow-Up [address] [address] Joanne Early LPN HEMOGLOBIN A1C 02/16/2025 8:45 AM CDT Procedure visit [address] [phone] Type 2 diabetes mellitus with hyperglycemia, with long-term current use of insulin ([facility]); Morbid obesity with body mass index of 40.0-49.9 ([facility]) 02/14/2025 External Device Data [facility] ABSTRACTION Provider, Abstract 02/08/[address] [phone] Gamaliel Lund DO Pain in joint of left shoulder; Right carpal tunnel syndrome; Right median nerve neuropathy 02/07/[address] [address] Gamaliel Lund DO Primary osteoarthritis of left knee; S/P left knee arthroscopy; Chronic post-operative pain 02/07/[address] [phone] Gamaliel Lund DO Primary osteoarthritis of left knee; S/P left knee arthroscopy; Chronic post-operative pain 02/01/2025 3:00 PM CDT Video Visit [address] [phone] Ernie Goode PA Lumbar radiculopathy (Primary Dx) 01/18/2025 10:45 AM CDT Office Visit [address] [phone] Shilpi Rivas PA-C 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 (Primary Dx) 01/18/2025 10:10 AM CDT Ancillary Procedure [address] [place] [address] Shilpi Rivas PA-C 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 01/18/2025 External Device Data STL ABSTRACTION Provider, Abstract 01/11/2025 Refill [facility] [address] [phone] Gamaliel Lund DO Primary osteoarthritis of left knee; S/P left knee arthroscopy; Chronic post-operative pain 01/11/2025 Refill [facility] [address] [phone] Gamaliel Lund DO Pain in joint of left shoulder; Right carpal tunnel syndrome; Right median nerve neuropathy 01/10/2025 External Device Data STL ABSTRACTION Provider, Abstract 01/09/[address] [phone] Shilpi Rivas PA-C Question 01/04/2025 Orders Only [address] [phone] Shilpi Rivas PA-C 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 (Primary Dx) 01/02/[address] [phone] Gamaliel Lund DO Morbid obesity with body mass index of 40.0-49.9 ([facility]); Type 2 diabetes mellitus with hyperglycemia, with long-term current use of insulin ([facility]) 12/13/[address] [phone] Gamaliel Lund DO Primary osteoarthritis of left knee; S/P left knee arthroscopy; Chronic post-operative pain 12/12/[address] [address] Gamaliel Lund DO Primary osteoarthritis of left knee; S/P left knee arthroscopy; Chronic post-operative pain 12/12/[address] [facility] [place] [address] [place] [address] [address] [place] [address] Gamaliel Lund DO Nausea 12/12/[address] 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 [address] Aaliyah Ordonez MD FINGER INTERPHALANGEAL JOINT FUSION DISTAL 11/25/2024 7:28 AM CDT Anesthesia Event [facility] Operating Room [address] [place] 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 Discharge Disposition: Home or Self Care from Last 3 Months Immunizations Immunization Administration Dates Next Due (ADACEL/BOOSTRIX)(10 YR UP) TDAP VACCINE, 0.5ML, IM 07/14/2019 (PFIZER)(12 YR UP) COVID-19 VACCINE - EMERGENCY USE AUTHORIZATION, MRNA, [id number](PF) 30 MCG/0.3 ML IM SUSP 09/20/2020,08/30/2020 (TENIVAC)(7 YRS UP) TETANUS AND DIPHTHERIA TOXOIDS, ADSORBED (5 LF OF TETANUS TOXOID AND 2 LF OF DIPHTHERIA TOXOID), 0.5ML (PF), IM 10/22/2002 Influenza Seasonal Unspecifi ed Formulation IM 03/15/2021,03/15/2021,03/15/2015,2002 Family History Medical History Relation Name Comments Heart Disease Father Farooq Camarillo Hypertension Father Farooq Cam[place] Breast Cancer Maternal Aunt 1 PUNEET positive re sponse- see media tab Breast Cancer Maternal Aunt 2 BILL Lung Cancer Maternal Grandfather Diabetes Maternal Grandmother Lizy Penaloza Lung Cancer Paternal Grandfather Heart Disease Sister 1 Kristen Avina Heart Disease Sister 2 Kristen Avina Colon Cancer Neg Hx Depression Neg Hx Kidney Disease Neg Hx Liver Disease Neg Hx Melanoma Neg Hx Ovarian Cancer Neg Hx Thyroid Disease Neg Hx Relation Name Status Comments Father Farooq [place] Maternal Aunt 1 PUNEET Alive Maternal Aunt 2 BILL Alive Maternal Grandfather Maternal Grandmother Lizy Penaloza Alive Mother Alive Paternal Grandfather Sister 1 Kristen Singletonn Sister 2 Kristen Avina Alive Social History Tobacco Use Types Packs/Day Years Used Date Smoking Tobacco: Never Passive Smoke Exposure: Never Smokeless Tobacco: Never Tobacco Cessation:Counseling Given: Not Answered Alcohol Use Standard Drinks/Week Comments No 0 (1 standard drink = 0.6 oz pur e alcohol) Feeling Safe Answer Date Recorded Are you in a relationship wi th someone who hurts you emotionally and/or physically? No 11/25/2024 Comments No Sex and Gender Information Value Date Recorded Sex Assigned at Not on file Legal Sex Female 2:50 AM WATCH MANUFACTURING SUPERVISOR Gender Identity Not on file Sexual Orientation Not on file Last Filed Vital Signs Vital Sign Reading [...] Mass Index 41.06 02/23/2025 2:56 PM CDT Plan of Treatment Upcoming Encounters Date Type Department Care Team (Late st Contact Info) Description 03/29/2025 2:00 PM CDT Office Visit [facility] Pain Management [address] [place] [address] Dorie Kat PA [address] [place] [address] 04/20/2025 8:45 AM WATCH MANUFACTURING SUPERVISOR Office Visit [facility] Orthopedics - Orthopedic [facility] [address] [place] [address] Aaliyah Ordonez MD [address] [place] [address] 05/30/2025 1:00 PM WATCH MANUFACTURING SUPERVISOR Appointment [facility] [address] [place] [phone] Gamaliel Lund DO [address], [place] [phone] 06/19/2025 9:00 AM WATCH MANUFACTURING SUPERVISOR Office Visit [facility] [place] [address] [place] [address] Roberto Nicolas Vidal, OD [address] [place] [address] 08/30/2025 3:20 PM CDT Office Visit [facility] [place] [address] [address] Gamaliel Lund DO [address] [place] [phone] Health Maintenance Due Date Last Done Comments HEPATITIS B VACCINES (1 of 3 - 19+ 3-dose series) 1989 COLORECTAL SCREENING 2015 Colorectal Cancer Screening 2015 FIT-DNA Q 3 years 2015 FIT/FOBT Q 1 year 2015 Flex Sig/CT Colonography Q 5 years 2015 ZOSTER VACCINE (1 of 2) 02/01/2020 PAP SMEAR 11/26/2024 11/26/2021 INFLUENZA VACCINE (#1) 2025 , 03/15/2021, 03/15/2015, Additional history exists COVID-19 Vaccine (2024-2 6 season) 2025 09/20/2020, 08/30/2020 DIABETES ANNUAL FOOT EXAM 04/11/2025 04/11/2024 BREAST CANCER SCREENING 05/24/2025 05/24/20 24, 10/31/2014, 10/31/2014, Additional history exists DIABETES ANNUAL RETINAL EXAM 06/16/202507/2024, 06/16/2024, 06/16/2024, Additional history exists DIABETES HBA1C Q 6 MONTHS 08/16/20252024, 09/19/2024, 05/19/2024, Additional history exists DIABETES MICROALBUMIN ANNUAL SCREEN 02/16/2026 02/16/2025, 01/14/2024, 01/21/2021 DIABETES: A1C (Auto Order) 02/16/202602/16, 09/19/2024, 05/19/2024, Additional history exists LDL CHOLESTEROL ANNUAL 02/16/2026 , 09/19/2024, 05/19/2024, Additional history exists CERVICAL CANCER SCREENING 11/26/2026 HPV/Cotest (21-29) 11/26/2026 11/26/2021 HPV/Cotest (30-65) 11/26/2026 11/26/2021 DTAP/TDAP/TD VACCINES (2 - T d or Tdap) 07/14/2029 07/14/2019, 10/22/2002 Medical Devices Implanted Type Area Oliving Machine Operator Device Identifier Shelf Expiration Date Model / Serial / Lot Bone Allcrft 7mm Brooks/Canc 6183-5-007 - [id number] Implanted:Qty: 1 on 08/10/2014 by Austyn Banerjee MD Bone Left: Neck ALE- SPINE 03/29/2019 6183-5-007 / / [id number] Pin Snap-Off Ft 1.9x32mm Ar-9919-32 - [id number] Implanted:Qty: 1 on 11/25/2024 by Aaliyah Ordonez MD at [facility] Pin Right: Finger [employer] 11/25/2025 AR-9919-32 / / LOAD [id number] Plate Rflxhbrd 1lvl 12mm [id number] - Sload [id number] Implanted:Qty: 1 on 08/10/2014 by Austyn Banerjee MD Plate Left: Neck ALE- SPINE [id number] / LOAD [id number] / Screw Va Sd 4.0x14mm [id number] - Sload [id number] Implanted:Qty: 4 on 08/10/2014 by Austyn Banerjee MD Screw Left: Neck ALE- SPINE [id number] / LOAD [id number] / Explanted Type Area Oliving Machine Operator Device Identifier Shelf Expiration Date Model / Serial / Lot Wire Fixate Calib Radha 1.1mm Ar-9938-04 - [id number] Explanted:Qty: 1 on 11/25/2024 by Aaliyah Ordonez MD at [facility] Wire Right: Finger [employer] 11/25/2025 AR-9938-04 / / LOAD [id number] Procedures Procedure Name Priority Date/Time Associated Diagnosis Comments MEDICATION COMPLIANCE DRUG SCREEN Routine 02/23/2025 3:48 PM CDT Encounter for long-term (current) use of medications MRI LUMBAR WO CONTRAST Routine 12:00 PM CDT Lumbar radiculopathy US ABDOMEN COMPLETE Routine 02/17/2025 9 :36 AM CDT NAFLD (nonalcoholic fatty liver disease) MICROALBUMIN/CREATININ E RATIO, RANDOM UR Routine 02/16/2025 8:27 AM CDT Type 2 diabetes mellitus with hyperglycemia, with long-term current use of insulin ([facility]) HEMOGLOBIN A1C Routine 02/16/2025 8:27 AM CDT Type 2 diabetes mellitus with hyperglycemia, with long-term current use of insulin ([facility]) LIPID PANEL Routine 02/16/2025 8:27 AM CDT Type 2 diabetes mellitus with hyperglycemia, with long-term current use of insulin ([facility]) VITAMIN D 25 HYDROXY Routine 02/16/2025 8:27 AM CDT Morbid obesity with body mass index of 40.0-49.9 (CMS/HCC) Type 2 diabetes mellitus with hyperglycemia, with long-term current use of insulin (CMS/[facility]) COMPREHENSIVE METABOLIC PANEL Routine 02/16/2025 8:27 AM CDT Type 2 diabetes mellitus with hyperglycemia, with long-term current use of insulin ([facility]) XR FINGER(S) RIGHT Routine 01/18/2025 10 :23 AM CDT 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 XR FINGER(S) RIGHT Stat 12/08/2024 1: 47 PM CDT 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 PROCEDURE PHOTOGRAPHS 11/29/2024 9:53 AM CDT XR FINGER(S) RIGHT Routine 11/25/2024 8: 27 AM CDT XR FLUORO LESS THAN 1 HOUR Routine 11/25/2024 8:26 AM CDT PA ARTHRODESIS INTERPHALANGEAL JT W/WO INT FIXJ 11/25/2024 7:36 AM CDT 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 Ernie SANTOS MR ORDERABLES Final Result * US ABDOMEN COMPLETE (02/17/2025 9:36 AM [...] chronic liver disease such as Miller cirrhosis.. us Gamaliel Lund DO US ORDERABLES Final Result * (ABNORMAL) MICROALBUMIN/CREATININE RATIO, RANDOM UR (02/16/2025 8:27 AM CDT) CREATININE, URINE 373(H) 20 - 275 mg/dL [facility] Comment: Verified by repeat analysis. ALBUMIN, URINE 6.1 See Note: mg/dL [facility] Comment: Reference Range: Reference Range Not established ALB/CREAT RATIO, URINE 16 <30 mg/g creat [facility] Comment: The ADA defines abnormalities in albumin excretion as follows: Albuminuria Category Result (mg/g creatinine) Normal to Mildly increased <30 Moderately increased 30-299 Severely increased > OR = 300 The ADA recommends that at least two of three specimens collected within a 3-6 month period be abnormal before considering a patient to be within a diagnostic category. Test Performed at: [facility] [address] [place] [address] Mary Lopes MD Urine URINE SPECIMEN OBTAINED BY CLEAN CATCH PROCEDURE / Unknown 02/16/2025 8:27 AM CDT 02/17/2025 12:47 AM CDT Gamaliel Lund DO URINE ORDERABLES Final Result [facility] [phone] [facility] [address] [place] [address] * VITAMIN D 25 HYDROXY (02/16/2025 8:27 AM CDT) VITAMIN D, 25 OH, TOTAL 33 30 - 100 ng/mL [facility] Comment: Vitamin D Status 25-OH Vitamin D: Deficiency: <20 ng/mL Insufficiency: 20 - 29 ng/mL Optimal: > or = 30 ng/mL For 25-OH Vitamin D testing on patients on D2-supplementation and patients for whom quantitation of D2 and D3 fractions is required, the QuestAssureD(TM) 25-OH VIT D, (D2,D3), LC/MS/MS is recommended: order code [id number] (patients >2yrs). See Note 1 Note 1 For additional information, please refer to http://education.[employer]/faq/SXY145 (This link is being provided for informational/ educational purposes only.) Test Performed at: [facility] [address] [address] Mary Lopes MD Blood 02/16/2025 8:27 AM CDT 02/17/2025 12:48 AM CDT [facility] CHEMISTRY ORDERABLES Final Re sult [facility] [facility] [phone] [facility] JAYDA Garcia [address] * (ABNORMAL) HEMOGLOBIN A1C (02/16/2025 8:27 AM CDT) HEMOGLOBIN A1C 7.8(H) <5.7 % [facility] Comment: For someone without known diabetes, a hemoglobin A1c value of 6.5% or greater indicates that they may have diabetes and this should be confirmed with a follow-up test. For someone with known diabetes, a value <7% indicates that their diabetes is well controlled and a value greater than or equal to 7% indicates suboptimal control. A1c targets should be individualized based on duration of diabetes, age, comorbid conditions, and other considerations. Currently, no consensus exists regarding use of hemoglobin A1c for diagnosis of diabetes for children. ESTIMATED AVERAGE GLUCOSE (MG/DL) 177 mg/dL [facility] ESTIMATED AVERAGE GLUCOSE (MMOL/L) 9.8 mmol/L [facility] Comment: Test Performed at: [facility] [address] JAYDA Wang [address] Mary Lopes MD Blood 02/16/2025 8:27 AM CDT 02/17/2025 12:48 AM CDT us Gamaliel Barbe Keen Impressions CHEMISTRY ORDERABLES Final Re sult [facility] [phone] [facility] [place] [address] * (ABNORMAL) LIPID PANEL (02/16/2025 8:27 AM CDT) CHOLESTEROL 168 <200 mg/dL [facility] HDL 40(L) > OR = 50 mg/dL [facility] TRIGLYCERIDE 84 <150 mg/dL [facility] LDL CALCULATED 111(H) mg/dL (calc) [facility] Comment: Reference range: <100 Desirable range <100 mg/dL for primary prevention; <70 mg/dL for patients with CHD or diabetic patients with > or = 2 CHD risk factors. LDL-C is now calculated using the Aixa calculation, which is a validated novel method providing better accuracy than the Friedewald equation in the estimation of LDL-C. Angel SS et al. MARIAH. 2013;310(19): 6598-3383 (http://education.[employer]/faq/NIX306) CHOL/HDL RATIO 4.2 <5.0 (calc) [facility] NON-HDL CHOLESTEROL 128 <130 mg/dL (calc) [facility] Comment: For patients with diabetes plus 1 major ASCVD risk factor, treating to a non-HDL-C goal of <100 mg/dL (LDL-C of <70 mg/dL) is considered a therapeutic option. Test Performed at: [facility] [address] [place] [address] Mary Lopes MD Blood 02/16/2025 8:27 AM CDT 02/17/2025 12:48 AM CDT us Gamaliel Lund DO CHEMISTRY ORDERABLES Final Re sult [facility] [phone] [facility] [address] * (ABNORMAL) COMPREHENSIVE METABOLIC PANEL (02/16/2025 8:27 AM CDT) GLUCOSE 148(H) 65 - 99 mg/dL [facility] Comment: Fasting reference interval For someone without known diabetes, a glucose value >125 mg/dL indicates that they may have diabetes and this should be confirmed with a follow-up test. BUN 12 7 - 25 mg/dL [facility] CREATININE 1.03 0.50 - 1.03 mg/dL [facility] GFR 64 > OR = 60 mL/min/1. 73m2 [facility] BUN/CREAT RATIO SEE NOTE: 6 - 22 (calc) [facility] Comment: Not Reported: BUN and Creatinine are within reference range. SODIUM 137 135 - 146 mmol/L [facility] POTASSIUM 4.1 3.5 - 5.3 mmol/L [facility] CHLORIDE 102 98 - 110 mmol/L [facility] CO2 25 20 - 32 mmol/L [facility] CALCIUM 9.4 8.6 - 10.4 mg/dL [facility] TOTAL PROTEIN 7.5 6.1 - 8.1 g/dL [facility] ALBUMIN 3.9 3.6 - 5.1 g/dL [facility] GLOBULIN 3.6 1.9 - 3.7 g/dL (calc) [facility] ALBUMIN/GLOBULIN RATIO 1.1 1.0 - 2.5 (calc) [facility] BILIRUBIN TOTAL 0.7 0.2 - 1.2 mg/dL [facility] ALKALINE PHOSPHATASE 102 37 - 153 U/L [facility] AST 38(H) 10 - 35 U/L [facility] ALT 39(H) 6 - 29 U/L [facility] Comment: Test Performed at: [facility] [address] JAYDA Wang [address] Mary Lopes MD Blood 02/16/2025 8:27 AM CDT 02/17/2025 12:48 AM CDT us Gamaliel Lund DO CHEMISTRY ORDERABLES Final Re sult [facility] [phone] [facility] [address] [place] [address] * XR FINGER(S) RIGHT (01/18/2025 10:23 AM CDT) Only the most recent of3 resultswithin the time period is included. Anatomical Region Laterality Modality Wrist / Hand Computed Radiogr aphy Narrative 02/02/2025 8:28 AM CDT X-ray of the right long DIP joint: A little bit of windowing around the screw, indicating some micro motion, and the line of the previous fracture is still visible, suggesting it has not fully consolidated. Shilpi Rivas PA-C DIAGNOSTIC IMAGING ORDERABLES Final Result * PROCEDURE PHOTOGRAPHS (11/29/2024 9:53 AM CDT) Provider Scanning PROCEDURE/MINOR SURGICAL ORDER IVÁN Final Result * XR FLUORO LESS THAN 1 HOUR (11/25/2024 8:26 AM CDT) Narrative 11/25/2024 8:26 AM CDT Order information only. Exam was auto-finalized. us Shilpi Rivas PA-C DIAGNOSTIC IMAGING ORDERABLES Final Result * (ABNORMAL) POC GLUCOSE (11/25/2024 6:19 AM CDT) GLUCOSE POC 250(H) 74 - 99 mg/dL 11/25/2024 6:19 AM CDT [facility] SPECIMEN SOURCE, GLUCOSE POC Whole Blood 11/25/2024 6:19 AM CDT [facility] Blood, whole 11/25/2024 6:19 AM CDT 11/25/2024 6:28 AM CDT Aaliyah Ordonez MD POINT OF CARE TESTING Final Result [facility] CLIA #[id number] [address] [place] [address] * MAMMO 3D PAVAN SCREEN BILATERAL MOBILE (05/24/2024 10:04 AM WATCH MANUFACTURING SUPERVISOR) Anatomical Region Laterality Modality Breast Bilateral Mammography, Dig ital Radiography Impressions 06/01/2024 2:51 PM WATCH MANUFACTURING SUPERVISOR : No mammographic evidence of malignancy. BI-RADS ASSESSMENT: 1 - Negative RECOMMENDATION: Routine annual screening mammography. Narrative 06/01/2024 2:51 PM WATCH MANUFACTURING SUPERVISOR EXAM: MAMMO SCRN BILAT 3D PAVAN W OR WO CAD INDICATION: Screening COMPARISON: 09/12/2020 MAMMO PRIOR STUDY, 08/19/2019 MAMMO PRIOR STUDY, 07/27/2019 MAMMO PRIOR STUDY, 10/31/2014 MAMMO DIAGNOSTIC UNI RIGHT W OR WO CAD, and 10/11/2014 MAMMO SCREEN BILAT W OR WO CAD BREAST COMPOSITION: There are scattered areas of fibroglandular density. FINDINGS: RIGHT BREAST: There are no suspicious masses, calcifications, or areas of architectural distortion. LEFT BREAST: There are no suspicious masses, calcifications, or areas of architectural distortion. [facility] MAMMO ORDERABLES Final Result * CERV/VAG CYTO SCREEN PAP W/HPV (11/26/2021 4:55 PM CDT) CLINICAL INFORMATION [facility] Comment:HEALTHY LAST MENSTRUAL PERIOD [facility] Comment:[id number] PREV PAP: [facility] Comment:INFORMATION NOT PROV IDED PREV BX: [facility] Comment:INFORMATION NOT PROV IDED SOURCE [facility] Comment:Endocervix ADEQUACY: [facility] Comment: Satisfactory for evaluation. Endocervical/transformation zone component absent. PAP INTERP [facility] Comment:Negative for intraep ithelial lesion or malignancy. COMMENT (PAP TEST) [facility] Comment: This case could not be evaluated with computer assisted technology. The slide was manually screened according to routine procedures. VENETIAN BLIND INSTALLER: [facility] Comment: ARMAND FELIX(ASCP) CT screening location: [place] [address] [place] [address] EXPLANATORY NOTE [facility] Comment: EXPLANATORY NOTE: The Pap is a screening test for cervical cancer. It is not a diagnostic test and is subject to false negative and false positive results. It is most reliable when a satisfactory sample, regularly obtained, is submitted with relevant clinical findings and history, and when the Pap result is evaluated along with historic and current clinical information. HPV E6/E7 Not Detected Not Detected [facility] Comment: Methodology: Instrumentation Fitter-Mediated Amplification This assay detects E6/E7 viral messenger RNA (mRNA) from 14 high-risk HPV types (16,18,31,33,35,39,45,51,52,56,58,59,66,68). Cervical sources are required for HPV testing. If a vaginal source from a patient who has had a total hysterectomy with removal of cervix was submitted, please contact the testing laboratory for alternative testing options. For additional information, please refer to http://education.[employer]/faq/AMM819z7 (This link if provided for information/ educational purposes only.) Test Performed at: [facility] [address] [place] [address] Tejinder Saucedo D.O., MPH SL Genital SWAB OF ENDOCERVIX / Unknown 11/26/2021 4:55 PM CDT 11/27/2021 7:41 AM CDT Myra Mcdonnell NP PATHOLOGY/CYTOLOGY ORDERA BLES Final Result [facility] [phone] from Last 3 Months or Most Recently Relevant to Health Maintenance Insurance RX [facility] [facility] [employer] Commercial [employer] MEDICAID [facility] Advance Directives For more information, please contact: [phone] * Full Code (Latest Code Status on File) Date Activated Date Inactivated Comments 11/25/2024 6:00 AM 11/25/2024 11:01 AM * Full Code Date Activated Date Inactivated Comments 06/03/2021 6:59 AM 06/03/2021 3:36 PM Care Teams Piping Design Specialist Relationship Specialty Start Date End Date Gamaliel Lund DO [address] [place] [address] PCP - General Family Practice 01/04/24
--- OUTSIDE RECORDS SUMMARY | 2025-02-25 20:09 | XMS_ITS | Encounter Summary ---
Author Organization [facility] Address [address] [place] [address] Care Team Providers Care Petroleum Engineering Teacher Name Role Phone Gamaliel Lund DO Primary Care Provider [phone] Reason for Referral * Eval and Treat (Routine) - Open Specialty Diagnoses / Procedures Referred By Contkody t Referred To Contact Pain Management Diagnoses Lumbar radiculopathy Procedures NC OFFICE/OUTPATIENT ESTABLISHED MOD MDM 30 MIN NC OFFICE/OUTPATIENT NEW MODERATE MDM 45 MINUTES Ernie Goode PA [address] [place] [address] Phone: tel: fax: [facility] [address] [place] [address] Phone: tel: fax: Referral ID Status Reason Start Date Expiration Date Visits Re quested Visits Authorized [id number] Open 02/21/2025 02/21/2026 1 1 Encounter Details Date Type Department Care Team (Late st Contact Info) Description 02/21/2025 Orders Only [facility] [address] [place] [address] Ernie Goode PA [address] [place] [address] [place] [address] Lumbar radiculopathy (Primary Dx) Social History Tobacco Use Types Packs/Day Years [...] on file Legal Sex Female 2:50 AM EXTERMINATOR HELPER TERMITE Gender Identity Not on file Sexual Orientation Not on file documented as of this encounter Plan of Treatment Upcoming Encounters Date Type Department Care Team (Late st Contact Info) Description 03/29/2025 2:00 PM CDT Office Visit [facility] [address] [place] [address] Dorie Kat PA [address] [place] [address] 04/20/2025 8:45 AM EXTERMINATOR HELPER TERMITE Office Visit [facility] Orthopedics - Orthopedic [facility] [address] [place] [address] Aaliyah Ordonez MD [address] [place] [address] 05/30/2025 1:00 PM EXTERMINATOR HELPER TERMITE Appointment [facility] Breast [place] [address] [place] [address] Gamaliel Lund, DO [address] [place] [address] 06/19/2025 9:00 AM EXTERMINATOR HELPER TERMITE Office Visit [facility] Cafeteria Associate Optometry [facility] [address] [place] [address] Nicolas Mejia, OD [address] [place] [address] 08/30/2025 3:20 PM CDT Office Visit [facility] [address], [place] [phone] Gamaliel Lund DO [address] [place] [phone] Scheduled Referrals Name Type Priority Associated Diagnoses Orde r Schedule AMB REFERRAL TO PAIN CLINIC Outpatient Referral Routine Lumbar radiculopathy Ordered: 02/21/2025 documented as of this encounter Visit Diagnoses Diagnosis Lumbar radiculopathy- Primary Thoracic or lumbosacral neuritis or radiculitis, unspecified documented in this encounter Additional Health Concerns Assessment Noted Time PHQ-9 Depression Total Score: 2 11/11/19 25 11:00 AM CDT documented as of this encounter Care Teams Petroleum Engineering Teacher Relationship Specialty Start Date End Date Gamaliel Lund DO [facility] [address] [phone] PCP - General Family Practice 01/04/24 documented as of this encounter
--- OUTSIDE RECORDS SUMMARY | 2025-02-25 20:09 | XMS_ITS | Encounter Summary ---
Author Organization [facility] Address [address] [place] [address] Care Team Providers Care Editor Dictionary Name Role Phone Gamaliel Lund DO Primary Care Provider [phone] Reason for Visit * Reason Comments Provider Call Encounter Details Date Type Department Care Team (Late st Contact Info) Description 02/22/2025 Telephone [facility] Medicine [place] [address] [address] Gamaliel Lund DO [address] [address] Provider Call Social History Tobacco Use Types Packs/Day Years [...] on file Legal Sex Female 2:50 AM VENDING MACHINE FILLER Gender Identity Not on file Sexual Orientation Not on file documented as of this encounter Miscellaneous Notes * Telephone Encounter - Babs Cisneors RN - 02/22/2025 3:49 PM CDT 02/22/2025 3:49 PM Medicaid called back to say that Jose E refused to submit a prior authorization to Medicaid for the lift mechanism for her chair. She states that if the provider would fill out a Medicaid exception form and fax this to the DME company then they would have to submit the claim to Medicaid along with the determination letter. She said that if the supply company still refuses to do this that she would reach out to a different DME company for the patient. She states that Medicaid will reimburse for the lift mechanism but not for the chair itself. She said sometimes these do get refused but if the provider does a peer to peer and there is adequate documentation stating that the patient does need this then it would get approved. Babs RN * Telephone Encounter - Babs Cisneros RN - 02/22/2025 3:30 PM CDT 02/22/2025 3:30 PM Returned call. No answer. Left voice mail/message to return our call. If patient/caregiver calls back, contact center please transfer caller to [facility] line so I can talk to them directly. Babs RN * Telephone Encounter - Skye Vela - 02/22/2025 3:26 PM CDT Copied from [facility] #[id number]. Topic: [id number] Call >> Feb 22, 2025 3:23 PM Skye Raymond wrote: Caller is requesting to speak with Clinical Care Team. Caller Name: [facility] (Medicaid) Callback Number: [phone] Is the caller a Physician, Nurse Practitioner or Physician Management Coordinator? No Call Notes: [facility] Plan is wanting to talk to someone about how to fill out the forms for the patient to get a lift chair. Please call them so they can tell you how to get this authorized for the patient. Is this addressing an immediate patient care need? No documented in this encounter Plan of Treatment Upcoming Encounters Date Type Department Care Team (Late st Contact Info) Description 03/29/2025 2:00 PM CDT Office Visit [facility] Pain Management [address] [place] [address] [place] [address] Dorie Kat PA [address] [place] [address] 04/20/2025 8:45 AM VENDING MACHINE FILLER Office Visit [facility] Orthopedics - Orthopedic [facility] [address] [place] [address] Aaliyah Ordonez MD [address] [place] [address] 05/30/2025 1:00 PM VENDING MACHINE FILLER Appointment [facility] [address] [place] [address] Gamaliel Lund DO [address] [place] [phone] 06/19/2025 9:00 AM VENDING MACHINE FILLER Office Visit [facility] Mail Distributor Optometry [facility] [address] [place] [address] Nicolas Mejia, OD [address] [place] [address] 08/30/2025 3:20 PM CDT Office Visit [facility] Family Medicine [place] [address] [place] [phone] Gamaliel Ludn DO [address] [place] [address] documented as of this encounter Visit Diagnoses Not on filedocumented in this encounter Additional Health Concerns Assessment Noted Time PHQ-9 Depression Total Score: 2 11/11/19 25 11:00 AM CDT documented as of this encounter Care Teams Editor Dictionary Relationship Specialty Start Date End Date Gamaliel Lund DO [address] [facility] [address] [place] [phone] PCP - General Family Practice 01/04/24 documented as of this encounter
--- OUTSIDE RECORDS SUMMARY | 2025-02-25 20:09 | XMS_ITS | Encounter Summary ---
Author Organization [facility] Address [address] [place] [address] Care Team Providers Care Dance Professor Name Role Phone Gamaliel Lund DO Primary Care Provider [phone] Encounter Details Date Type Department Care Team (Late st Contact Info) Description 02/20/2025 Results Follow-Up [facility] Family Medicine [place] [address] [address] Gamaliel Lund DO [address] [address] US ABDOMEN COMPLETE Social History Tobacco Use Types Packs/Day Years [...] on file Legal Sex Female 2:50 AM BANK TELLER MACHINE MECHANIC Gender Identity Not on file Sexual Orientation Not on file documented as of this encounter Plan of Treatment Upcoming Encounters Date Type Department Care Team (Late st Contact Info) Description 03/29/2025 2:00 PM CDT Office Visit [facility] Pain Management [address] [place] [phone] Dorie Kat PA [address] [place] [address] 04/20/2025 8:45 AM BANK TELLER MACHINE MECHANIC Office Visit [facility] Orthopedics - Orthopedic [facility] [address] [place] [address] Aaliyah Ordonez MD [address] [place] [address] 05/30/2025 1:00 PM BANK TELLER MACHINE MECHANIC Appointment [facility] [address] [facility] [address] [place] [address] Gamaliel Lund DO [address] [place] [phone] 06/19/2025 9:00 AM BANK TELLER MACHINE MECHANIC Office Visit [facility] Ssrs Report Developer Optometry [facility] [address] [place] [address] Nicolas Mejia, OD [address] [facility] [address] [place] [address] 08/30/2025 3:20 PM CDT Office Visit [address] [address] Gamaliel Lund DO [address] [place] [phone] documented as of this encounter Visit Diagnoses Not on filedocumented in this encounter Additional Health Concerns Assessment Noted Time PHQ-9 Depression Total Score: 2 11/11/19 25 11:00 AM CDT documented as of this encounter Care Teams Dance Professor Relationship Specialty Start Date End Date Gamaliel Lund DO [address] [facility] 5 [place] [phone] PCP - General Family Practice 01/04/24 documented as of this encounter
--- OUTSIDE RECORDS SUMMARY | 2025-02-25 20:09 | XMS_ITS | Encounter Summary ---
Author Organization [facility] Address [address] [place] [address] Phone Care Team Providers Care Auto Tune Up Mechanic Name Role Phone Gamaliel Lund DO Primary Care Provider [phone] Encounter Details Date Type Department Care Team (Late st Contact Info) Description 03/07/2024 [facility] [address] [place] [address] Stage 3 chronic kidney disease, not otherwise specified (HCC) Social History Tobacco Use Types Packs/Day Years Used Date Smoking Tobacco: Never Assessed Comments Unknown Sex and Gender Information Value Date Recorded Sex Assigned at Not on file Legal Sex Female 3:28 PM EDT Gender Identity Not on file Sexual Orientation Not on file documented as of this encounter Plan of Treatment Not on file documented as of this encounter Visit Diagnoses Diagnosis Stage 3 chronic kidney disease, not otherwise specified (HCC) documented in this encounter Care Teams Auto Tune Up Mechanic Relationship Specialty Start Date End Date Gamaliel Lund DO [address] [place] [address] PCP - General Family Medicine 07/28/24 documented as of this encounter
--- OUTSIDE RECORDS SUMMARY | 2025-02-25 20:09 | XMS_ITS | Clinical Summary ---
Author Organization [facility] Facility Address [address] [place] [id number] Care Team Providers Care Caddie Name Role Phone Gamaliel Lund Primary Care Provider [phone] Allergies Active Allergy Reactions Criticality Noted Date Comments Orphenadrine 01/26/2012 Other Reaction(s): Other (See Comments) High blood pressure & heart rate when mixed with norco Oxycodone-Acetaminophen Anaphylaxis,Shor tnes s of breath,Swelling High 01/26/2012 Other Reaction(s): [place] Propoxyphene Other (see comments) Low 01/26/2012 Medications tiZANidine (ZANAFLEX) 4 MG tablet Take 4 mg by mouth every 6 (six) hours if needed 12/31/2023 Active risperiDONE (RisperDAL) 1 MG tablet Take 1 mg by mouth in the morning and 1 mg in the evening. 02/05/2024 Active pregabalin (LYRICA) 75 MG capsule Take 75 mg by mouth in the morning and 75 mg at noon and 75 mg in the evening. 05/05/2024 Active ondansetron ODT (ZOFRAN-ODT) [address] 4 mg under the tongue 06/01/2024 Active metFORMIN XR (GLUCOPHAGE-XR) 500 MG 24 hr tablet Take 1,000 mg by mouth in the morning and 1,000 mg in the evening. 05/31/2024 Active Insulin Lispro, 1 Unit Dial, 100 UNIT/ML solution pen-injector Inject 50 Units under the skin 05/09/2024 Active insulin degludec (TRESIBA FLEX TOUCH) 200 UNIT/ML injection Inject 100-150 Units under the skin in the morning. 05/23/2024 Active HYDROcodone-acet aminophen (LORCET PLUS) 10-325 MG per tablet Take 1 tablet by mouth every 6 (six) hours if needed 06/01/2024 Active Fluticasone Furoate (Arnuity Ellipta) 100 MCG/ACT aerosol powder Inhale 1 puff in the morning. 01/04/2024 Active FLUoxetine (PROzac) 10 MG capsule Take 10 mg by mouth 1 (one) time each day 03/08/2024 Active escitalopram (LEXAPRO) 10 MG tablet Take 10 mg by mouth 1 (one) time each day 11/18/2023 Active buPROPion XL (WELLBUTRIN XL) 150 MG 24 hr tablet Take 150 mg by mouth in the morning. 04/04/2024 Active Baclofen 5 MG tablet Take 5 mg by mouth in the morning and 5 mg at noon and 5 mg in the evening. 06/29/2024 Active atorvastatin (LIPITOR) 40 MG tablet Take 40 mg by mouth 1 (one) time each day 04/14/2022 Active albuterol HFA (Ventolin HFA) 108 (90 Base) MCG/ACT inhaler 05/31/2021 Act meche lisinopril 40 MG tablet Take 1 tablet (40 mg total) by mouth 1 (one) time each day 30 tablet 11 07/28/2024 07/28/19 26 Active Active Problems No known active problems Encounters Date Type Department Care Team Description 01/25/2025 Orders Only [facility] [address] [facility] [address] [place] [phone] Judy Santana MD Chronic kidney disease stage 2 from Last 3 Months Family History Medical History Relation Comments Heart disease Father Hypertension Father Diabetes Maternal Grandmother Heart disease Sister Relation Status Comments Father Maternal Grandmother Sister Social History Tobacco Use Types Packs/Day Years Used Date Smoking Tobacco: Never Smokeless Tobacco: Never Tobacco Cessation:Counseling Given: Not Answered Alcohol Use Standard Drinks/Week Comments Not Currently 0 (1 standard drink = 0.6 oz pur e alcohol) Comments Unknown Sex and Gender Information Value Date Recorded Sex Assigned at Not on file Legal Sex Female 3:28 PM EDT Gender Identity Not on file Sexual Orientation Not on file Last Filed Vital Signs Vital Sign Reading Time Taken Comments Blood Pressure 152/86 07/28/2024 1:52 PM PHOTOGRAPHER AERIAL Pulse 72 07/28/2024 1:52 PM PHOTOGRAPHER AERIAL Temperature - - Respiratory Rate - - Oxygen Saturation - - Inhaled Oxygen Concentration - - Weight 109 kg (240 lb 9.6 oz) 07/28/2024 1:52 PM PHOTOGRAPHER AERIAL Height 160 cm (5' 3 ) 07/28/2024 1:52 PM PHOTOGRAPHER AERIAL Body Mass Index 42.62 07/28/2024 1:52 PM PHOTOGRAPHER AERIAL Plan of Treatment Health Maintenance Due Date Last Done Comments Breast Cancer Screening 1970 Hepatitis B Vaccine (1 of 3 - 19+ 3-dose series) 01/31 Pneumococcal Vaccine: 50+ Years (1 of 2 - PCV) 989 Colorectal Cancer Screening: Annual FOBT 2019 Colorectal Cancer Screening: Colonoscopy 2019 Colorectal Cancer Screening: Sigmoidoscopy 2019 Diabetes: Hemoglobin A1C 03/15/2024 Diabetes: Ophthalmology Exam 03/15/2024 Diabetes: Pedal Pulse Checked 03/15/2024 Diabetes: Sensory Foot Exam 03/15/2024 Diabetes: Visual Foot Exam 03/15/2024 Influenza Vaccine (#1) [address] [facility] ([id number]) Care Teams Caddie Relationship Specialty Start Date End Date Gamaliel Lund DO [address] [place] [address] PCP - General Family Medicine 07/28/24
--- OUTSIDE RECORDS SUMMARY | 2025-02-25 20:09 | XMS_ITS | Encounter Summary ---
Author Organization [facility] Address [address] [place] [address] Care Team Providers Care City Marshal Name Role Phone Gamaliel Lund DO Primary Care Provider [phone] Encounter Details Date Type Department Care Team (Late st Contact Info) Description 02/21/2025 Results Follow-Up [facility] [address] [place] [address] Ernie Goode PA [address] [place] [address] [place] [id number] MRI LUMBAR WO CONTRAST Social History Tobacco Use Types Packs/Day Years [...] on file Legal Sex Female 2:50 AM SKIMMER REVERBERATORY Gender Identity Not on file Sexual Orientation Not on file documented as of this encounter Plan of Treatment Upcoming Encounters Date Type Department Care Team (Late st Contact Info) Description 03/29/2025 2:00 PM CDT Office Visit [facility] [address] [place] [phone] Dorie Kat PA [address] [place] [phone] 04/20/2025 8:45 AM SKIMMER REVERBERATORY Office Visit [facility] Orthoped[facility] - Orthopedic [facility] [address] [place] [address] Aaliyah Ordonez MD [address] [place] [address] 05/30/2025 1:00 PM SKIMMER REVERBERATORY Appointment [facility] [address] [facility] [address] [place] [address] Gamaliel Lund DO [address] [place] [phone] 06/19/2025 9:00 AM SKIMMER REVERBERATORY Office Visit [facility] Beauty Specialist Optometry [facility] [address] [place] [address] Nicolas Mejia, OD [address] [facility] [address] [place] [address] 08/30/2025 3:20 PM CDT Office Visit [address] [phone] Gamaliel Lund DO [address] [place] [phone] documented as of this encounter Visit Diagnoses Not on filedocumented in this encounter Additional Health Concerns Assessment Noted Time PHQ-9 Depression Total Score: 2 11/11/19 25 11:00 AM CDT documented as of this encounter Care Teams City Marshal Relationship Specialty Start Date End Date Gamaliel Lund DO [address] [facility] [address] [place] [phone] PCP - General Family Practice 01/04/24 documented as of this encounter
--- OUTSIDE RECORDS SUMMARY | 2025-02-25 20:09 | XMS_ITS | Clinical Summary ---
Author Organization [facility] Address [address] [place] [address] Care Team Providers Care Ferry Operator Name Role Phone Facility, Outside Primary Care Provider [phone] Source Comments PLEASE NOTE, if this patient is a minor, it may be UNLAWFUL to discuss sensitive information that is contained in these records (such as FAMILY PLANNING, MENTAL HEALTH or SUBSTANCE ABUSE) with the minor patient's parent or other person without the patient's specific authorization.[facility] Allergies Active Allergy Reactions Criticality Noted Date Comments Oxycodone-Acetaminophen Anaphylaxis High 06/09/2024 Medications VENTOLIN HFA 90 mcg/actuation inhaler 4 Active aspirin [address] tablet Take 81 mg by mouth 2 (two) times daily 4 Active atorvastatin (LIPITOR) 20 mg tablet Take 20 mg by mouth daily 4 Active DEXCOM G7 CHANGE MANAGEMENT FACILITATOR misc 4 Active blood-glucose sensor (DEXCOM G7 SENSOR) gregory Use to monitor glucose continuously. Apply new sensor every 10 days. 4 Active buPROPion XL (WELLBUTRIN XL) 150 mg 24 hr tablet Take 150 mg by mouth daily 4 Active ARTHRITIS PAIN, DICLOFENAC, 1 % gel APPLY 2 GRAMS TOPICALLY FOUR TIMES A DAY TO SINGLE ELBOW, WRIST OR HAND (INCLUDING PALM/FINGERS/ BACK OF HAND) 4 Active escitalopram (LEXAPRO) 10 mg tablet 4 Active FLUoxetine (PROZAC) 10 mg capsule 4 Active gabapentin (NEURONTIN) 100 mg capsule 4 Active HYDROcodone-acetam inophen (NORCO) 10-325 mg per tablet Take 1 Tablet by mouth every 6 (six) hours as needed 4 Active insulin aspart (NOVOLOG) 100 unit/mL (3 mL) 4 Active meloxicam (MOBIC) 7.5 mg tablet 4 Active lisinopriL 10 mg tablet 4 Active metFORMIN XR (GLUCOPHAGE-XR) 500 mg 24 hr tablet Take 1,000 mg by mouth twice a day 4 Active ondansetron ODT (ZOFRAN-ODT) [address] 4 mg under the tongue every 8 (eight) hours as needed 4 Active TECHLITE PEN NEEDLE 32 gauge x /32 ndle 4 Active pregabalin (LYRICA) 75 mg capsule Take 75 mg by mouth 3 (three) times a day 4 Active risperiDONE (RISPERDAL) 1 mg tablet Take 1 mg by mouth twice a day 4 Active tiZANidine (ZANAFLEX) 4 mg tablet 4 Active promethazine-DM (PROMETHAZINE-DM) 6.25-15 mg/5 mL syrupIndications:A cute cough Take 5 mL by mouth 4 (four) times daily as needed for cough 118 mL 4 Active Social History Tobacco Use Types Packs/Day Years Used Date Smoking Tobacco: Never Smokeless Tobacco: Never Tobacco Cessation:Counseling Given: Yes Alcohol Use Standard Drinks/Week Comments Not Currently 0 (1 standard drink = 0.6 oz pur e alcohol) Social Connections Answer Date Recorded Connectedness 0 06/09/2024 Financial Resource Strain Answer Date R ecorded Financial Resource Strain 0 2023 Stress Answer Date Recorded Stress 0 06/09/2024 Physical Activity Answer Date Recorded Physical Activity 0 06/09/2024 Food Insecurity Answer Date Recorded Food 0 06/09/2024 Transportation Needs Answer Date Record ed Transportation 0 06/09/2024 Housing Stability Answer Date Recorded Housing 0 06/09/2024 Safety and Environment Answer Date Evans rded Safety 0 06/09/2024 Utilities Answer Date Recorded Utilities 0 06/09/2024 Employment Answer Date Recorded Stress 0 06/09/2024 Comments Unknown Sex and Gender Information Value Date Recorded Sex Assigned at Female 06/09/2024 5:47 AM PST Legal Sex Female 5:45 AM PST Gender Identity Female 06/09/2024 5:47 AM PST Sexual Orientation Straight 06/09/2024 5: 47 AM PST Last Filed Vital Signs Vital Sign Reading Time Taken Comments Blood Pressure 144/78 06/09/2024 7:58 AM SUPERVISOR ELEMENTARY EDUCATION Pulse 82 06/09/2024 7:58 AM SUPERVISOR ELEMENTARY EDUCATION Temperature 36.3 C (97.4 F) 06/09/2024 7:58 AM SUPERVISOR ELEMENTARY EDUCATION Respiratory Rate 22 06/09/2024 7:58 AM SUPERVISOR ELEMENTARY EDUCATION Oxygen Saturation 93% 06/09/2024 7:58 AM SUPERVISOR ELEMENTARY EDUCATION Inhaled Oxygen Concentration - - Weight 111.8 kg (246 lb 6.4 oz) 06/09/2024 7:58 AM SUPERVISOR ELEMENTARY EDUCATION Height 160 cm (5' 3 ) 06/09/2024 7:58 AM SUPERVISOR ELEMENTARY EDUCATION Body Mass Index 43.65 06/09/2024 7:58 AM SUPERVISOR ELEMENTARY EDUCATION Plan of Treatment Health Maintenance Due Date Last Done Comments Anxiety Screening 1970 HPV Screening 1970 Hepatitis C Screening 1970 Lipid Screening 1970 Pap + HPV 1970 Urine Drug Screen 1970 HIV Screening 1985 Imm-Hepatitis B (1 of 3 - + 3-dose series) 1989 Cervical Cancer Screening [address] Colonography 2015 Colonoscopy 2015 Colorectal Cancer Screening 2015 FIT/gFOBT 2015 Fecal DNA 2015 Flexible Sigmoidoscopy 2015 Imm-Pneumococcal 50+ (1 of 1 - PCV) 02/01/2020 Imm-Zoster, Recombinant (1 of 2) 02/01/2020 Alcohol and Drug Screen 06/15/2024 Depression Annual Screen 06/15/2024 [id number] ( season) 2025 04/2 021, 08/30/2020 Imm-Influenza (#1) 2025 03/15/2021, 03/15/2015 Diabetes Screening 05/19/2025 05/19/2024, 0 01/14/2024, 05/28/2021, Additional history exists Hypertension Screening (#1) 06/09/2025 Tobacco Screening 06/09/2025 06/09/2024 Breast Cancer Screening (Mammogram) 05/24/2026 05/24/2024 Imm-DTaP/Tdap/Td (2 - Td or Tdap) 07/14/2029 020 Cervical Ablation/Cold-Knife Conization Discontinued Cervical Cryotherapy Discontinued Colposcopy Discontinued Endometrial Biopsy Discontinued Excision/Leep Discontinued HPV Genotyping Discontinued Vaginal Pap Discontinued Vulvoscopy Discontinued Insurance [facility] Care Teams Ferry Operator Relationship Specialty Start Date End Date Facility, Outside None [facility]JENDRA [facility]ALL [address] PCP - General Specialist - Other Service Providers 06/09/24
[2025-02-25 20:25] VITALS: BP 159/71; PULSE 87; RESP 16; TEMP 36.8; O2SAT 95
--- NOTE | 2025-02-26 05:18 | W.ED.SKABFB ---
HPI - Skin/Abscess/Foreign Bdy General: Chief complaint: Skin/Abscess/Foreign Body Stated complaint: rash on arm spreading Time Seen by Provider: 02/26/25 01:04 History of Present Illness: Patient is a 65-year-old female who presents with a rash on her right arm. The rash initially started on her wrist yesterday and has now spread from her hand to her elbow. She reports associated itching and pain. Patient attempted to apply lotion to the affected area, which caused significant burning sensation. She denies any similar episodes in the recent past, though reports a history of poison tae exposure at age 14 (approximately 51 years ago). She denies any known exposures such as yard work or burning materials. The rash is limited to the right upper extremity with no involvement of other body areas. Patient denies fever, shortness of breath, cough, or other systemic symptoms. Related Data Home Medications ?Medication ?Instructions ?Recorded ?Confirmed albuterol sulfate 90 mcg/actuation 2 puff inhalation Q4H PRN 01/22/23 06/13/24 aerosol inhaler atorvastatin 20 mg tablet 20 mg PO DAILY 01/22/23 06/13/24 lisinopril 10 mg tablet 10 mg PO DAILY 01/22/23 06/13/24 pen needle, diabetic 32 gauge x 01/22/23 06/13/24 (Comfort EZ Pen [place]) diclofenac potassium 50 mg tablet 50 mg PO TID PRN 11/04/23 06/13/24 fluticasone furoate 100 1 inh inhalation DAILY 11/04/23 06/13/24 mcg/actuation blister powder for inhalation (Arnuity Ellipta) hydromorphone 2 mg tablet 2 mg PO Q6H 11/04/23 06/13/24 (Dilaudid) pregabalin 25 mg capsule (Lyrica) 25 mg PO TID 11/04/23 06/13/24 tizanidine 4 mg capsule 4 mg PO Q8H PRN 11/04/23 06/13/24 Previous Rx's ?Medication ?Instructions ?Recorded insulin aspart U-100 100 unit/mL 50 unit (0.5 mL) SUBCUT TID #45 mL 01/19/24 (3 mL) subcutaneous pen (Novolog FlexPen U-100 Insulin aspart) insulin degludec 200 unit/mL (3 70 unit (0.35 mL) SUBCUT DAILY #9 01/19/24 mL) subcutaneous pen (Tresiba mL FlexTouch U-200 insulin) metformin 500 mg tablet,extended 1,000 mg (2 x 500 mg) PO BID #60 01/19/24 release 24 hr tabs diclofenac sodium 1 % topical gel 2 g topical QID #100 grams 02/01/24 blood-glucose,roll slicing machine tender,cont #1 ea 02/12/24 (Dexcom G7 Senior Production Supervisor) blood-glucose sensor (Dexcom G7 #3 ea 07/26/24 Sensor device) triamcinolone acetonide 0.1 % 1 applic topical TID #80 grams 02/26/25 topical ointment Allergies Allergy/AdvReac Type Severity Reaction Status Date / Time oxycodone (From Percocet) Allergy Severe ALGY-Anaphy Verified 02/25/25 20:28 laxis orphenadrine (From Norflex) Allergy Intermediate ALGY-Hives Verified 02/25/25 20:28 PFS ED PFSH: Medical History (Updated 02/26/25 @ 01:20 by Jamel Sousa DO) Osteophyte of left hip Chronic lower back pain Back pain with left-sided sciatica Asthma Hypertension Diabetes Hyperlipidemia Osteoarthritis Surgical History Hx of cholecystectomy Family History Other Cancer Diabetes Social History Smoking and tobacco/nicotine status: never used tobacco/nicotine Physical Exam Const: COMMON NORMALS: no acute distress GENERAL APPEARANCE: cooperative; not ill appearing and not frail appearing HENMT: COMMON NORMALS: normocephalic, atraumatic and Normal external nose present HEAD & SCALP: normocephalic and atraumatic FACE & SINUS: normal facial exam and face symmetric NOSE: Normal external nose present Eye: COMMON NORMALS: Equal, round and reactive pupils present and EOMs intact bilaterally PUPIL: Yes Equal, round and reactive pupils present Neck/C-Spine: GENERAL: Yes trachea midline Chest: CHEST: Yes Symmetrical chest wall rise Resp: COMMON NORMALS: normal respiratory effort, No retractions, No use of accessory muscles and clear to auscultation bilaterally AUSCULTATION: clear to auscultation bilaterally Cardio: COMMON NORMALS: regular rate and regular rhythm RATE: regular rate RHYTHM: regular rhythm Psych: COMMON NORMALS: speech normal SPEECH: Yes normal speech Skin: NARRATIVE SKIN EXAM: right forearm reveals diffuse maculopapular rash. No excoriation. Mild erythema. Course Vital Signs: Vital signs: Vital Signs Temperature 98.2 F 02/25/25 20:25 Pulse Rate 87 02/25/25 20:25 Respiratory Rate 16 02/25/25 20:25 Blood Pressure 159/71 02/25/25 20:25 Pulse Oximetry 95 02/25/25 20:25 Oxygen Delivery Me thod Room Air 02/25/25 20:25 MDM - Skin/Abscess/Foreign Bdy Medicial Decision Making Patient has evidence of contact dermatitis on her right forearm. No respiratory involvement. No other skin involvement. She will be given a single dose of Dexamethasone here, followed by Triamcinolone ointment. She may take Benadryl over the counter. Return for worsening symptoms. No radiology studies performed this visit Discharge Plan Discharge Patient Disposition: Home Clinical Impression: Contact dermatitis Condition: Stable Prescriptions: New triamcinolone acetonide 0.1 % ointment 1 applic topical TID Qty: 80 0RF No Action lisinopril 10 mg tablet 10 mg PO DAILY albuterol sulfate 90 mcg/actuation HFA aerosol inhaler 2 puff inhalation Q4H PRN atorvastatin 20 mg tablet 20 mg PO DAILY (DME) pen needle, diabetic [Comfort EZ Pen [place]] 32 gauge x 5/32 needle See Rx Instructions .Route Rx Instructions: As directed diclofenac potassium 50 mg tablet 50 mg PO TID PRN Arnuity Ellipta 100 mcg/actuation blister with device 1 inh inhalation DAILY hydromorphone [Dilaudid] 2 mg tablet 2 mg PO Q6H pregabalin [Lyrica] 25 mg capsule 25 mg PO TID tizanidine 4 mg capsule 4 mg PO Q8H PRN (DME) Dexcom G7 Senior Production Supervisor Misc See Rx Instructions .Route Qty: 1 0RF Rx Instructions: As directed diclofenac sodium 1 % gel 2 g topical QID Qty: 100 3RF Rx Instructions: apply to single elbow, wrist or hand; for hand includes palm/fingers/back of hand insulin aspart U-100 [Novolog FlexPen U-100 Insulin] 100 unit/mL (3 mL) insulin pen 50 unit SUBCUT TID Qty: 45 0RF insulin degludec [Tresiba FlexTouch U-200] 200 unit/mL (3 mL) insulin pen 70 unit SUBCUT DAILY Qty: 9 0RF metformin 500 mg tablet extended release 24 hr 1,000 mg PO BID Qty: 60 0RF (DME) Dexcom G7 Sensor Device See Rx Instructions .Route Qty: 3 3RF Rx Instructions: change sensor every 10 days Discharge Orders: Discharge ED (Routine); Ordered 02/26/25 Ordered By: Jamel Sousa Referrals: Gamaliel Lund DO [Primary Care Provider] - 1-3 days Patient Instructions: Contact Dermatitis (ED), Opioid Safety, Pain Management, Patient Portal & Cynthia Instructions Activity Restrictions/Additional Instructions: You may use [id number] Benadryl for itch. Use cream 3 times daily. Return for problems. Medication you are given this morning will raise your blood sugar significantly for the next 48 hours or so. Print Language: Chinese Coding Level of Care Code ED Medical Service Representative for Iesha Alvarenga
== END 2025-02-26 01:45 | disposition home or self-care (01) ==
PROVIDERS: Emergency Provider Emergency Medicine; PCP Family Medicine
DX: L25.9 Unspecified contact dermatitis, unspecified cause (principal); Z79.4 Long term (current) use of insulin; Z79.84 Long term (current) use of oral hypoglycemic drugs; E11.9 Type 2 diabetes mellitus without complications; E78.5 Hyperlipidemia, unspecified; I10 Essential (primary) hypertension
CPT/HCPCS: 99283; J8540; Q0163